=== PATIENT | female | born 1960 | race Caucasian/White ===

== ENCOUNTER 2024-04-04 16:30 | Emergency (ER) | payer OTHER, SELFPAY ==
[2024-04-04] VITALS (9 sets, daily range): BP systolic 95–118; BP diastolic 59–84; PULSE 86–119; RESP 13–100; TEMP 36.1–36.6; O2SAT 95–100; BMI 25.6
--- NOTE | 2024-04-04 16:53 | PD.EDRME ---
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 She reports with complaints of anorexia x 2 days Chief Complaint: Abdominal Pain Time Seen by Provider: 04/04/24 16:33 Vital signs: Vital Signs Temperature 97.5 F 04/04/24 16:42 Pulse Rate 115 H 04/04/24 16:42 Respiratory Rate 20 04/04/24 16:42 Blood Pressure 97/68 04/04/24 16:42 Pulse Oximetry (%) 97 04/04/24 16:42 Oxygen Delivery Method Room Air 04/04/24 16:42
[2024-04-04 17:14] LABS: Basophils % (Auto) 0 % (0-2.5); Eosinophils % (Auto) 0 % (0-10); Hematocrit 35.6 % (36.0-46.0); Immature Granulocytes % (Auto) 4 % (0-0); Immature Granulocytes Auto 0.56 Thou/mm3 (0.00-0.00); Lymphocytes # (Auto) 0.9 Thou/mm3 (1.0-4.8); Lymphocytes % (Auto) 7 % (10-50); Mean Corpuscular HGB Conc 33.7 g/dl (31.0-37.0); Mean Corpuscular Hemoglobin 27.7 pg (25.0-35.0); Mean Corpuscular Volume 82 fL (80-100); Monocytes # (Auto) 0.4 Thou/mm3 (0.0-0.8); Monocytes % (Auto) 3 % (0-12); Neutrophils # (Auto) 11.2 Thou/mm3 (1.8-7.7); Neutrophils % (Auto) 86 % (37-80); Nucleated Red Blood Cell % 0 /100 WBC (0); Platelet Count 359 Thou/mm3 (140-440); RDW Standard Deviation 42.7 fL (36.4-46.3); Red Blood Count 4.33 Miln/mm3 (4.00-5.20); White Blood Count 13.1 Thou/mm3 (3.6-11.0)
[2024-04-04 17:30] LABS: Alanine Aminotransferase 41 U/L (10-49); Albumin, Serum 4.7 gm/dL (3.4-4.8); Albumin/Globulin Ratio 1.4 (1.2-2.2); Alkaline Phosphatase 417 U/L (46-116); Anion Gap 15 (7-16); Aspartate Amino Transferase 18 U/L (0-34); BUN/Creatinine Ratio 19 Ratio (12-20); Bilirubin,Total 0.2 mg/dL (0.3-1.2); Blood Urea Nitrogen 30 mg/dL (9-23); Calcium 9.7 mg/dL (8.3-10.6); Calcium (Corrected) 9.7 mg/dL (8.5-10.1); Carbon Dioxide 15.1 mMol/L (20.0-31.0); Chloride 98 mMol/L (98-107); Creatinine (Component) 1.6 mg/dL (0.6-1.3); Estimated Creatinine Clearance 32.3 mL/min (>60); Globulin 3.3 gm/dL (2.3-3.5); Glucose 128 mg/dL (74-106); Osmolality,Calculated 265 (275-295); Potassium 3.6 mMol/L (3.4-5.1); Sodium 128 mMol/L (136-145); eGFR 36 See Note
--- NOTE | 2024-04-04 17:35 | PC.NURSE ---
PT CAME IN FOR WEAKNESS THAT STARTED 4 DAYS AGO GETTING WORSE LAST NIGHT. PT IS A/O AT THIS TIME. PT RECENTLY GOT DIACHARGED FROM [facility] S/P DEBULKING SURGERY. PT DOES HAVE MIDLINE ABD INCISION THAT IS WELL APPROXIMATED AND HEALING. CASIMIRO AT BEDSIDE.
--- NOTE | 2024-04-04 17:42 | XR_ITS ---
Examination: AP chest single view Technique one AP portable semiupright chest single view Exam date and time: April 04, 2024 at 1759 hrs. Indications: Sepsis today. Findings: Bilateral subsegmental atelectasis No lobar pneumonia Normal heart size Right Port-A-Cath tip SVC satisfactory position Impression: Bilateral subsegmental atelectasis No lobar pneumonia
--- NOTE | 2024-04-04 17:43 | EDNOTE_ITS ---
ED General RME/HPI General Chief complaint: Abdominal Pain Stated complaint: abdominal pain Time Seen by Provider: 04/04/24 16:33 Arrival date/time: 04/04/24 16:30 CC: A decreased appetite, and fluid intake HPI patient has a significant history of colon cancer with abdomen metastasis and was discharged from [facility] for right colon ectomy exploratory lap and was discharged 5 days ago. Patient states he was doing a OK , for the first 2 days at home and then to decreased p.o. intake. Patient has no specific pain. 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 She reports with complaints of anorexia x 2 days Related Data Previous Rx's ?Medication ?Instructions ?Recorded ascorbic acid (vitamin C) 250 mg 500 mg (2 x 250 mg) PO BID #60 tabs 09/23/22 tablet (Vitamin C) docusate sodium 100 mg capsule 100 mg PO BID #60 caps 09/23/22 hydrocodone 5 mg-acetaminophen 325 1 tab PO Q6HR PRN pain (scale 09/23/22 mg tablet score 7-10) #30 tabs zinc sulfate 50 mg zinc (220 mg) 220 mg (4.4 x 50 mg zinc (220 mg)) 09/23/22 capsule PO QDAY #30 caps Allergies Allergy/AdvReac Type Severity Reaction Status Date / Time No Known Allergies Allergy Verified 04/04/24 16:36 Review of Systems Review of Systems Narrative Review of Systems: GEN: No fever, no chills, no weight loss EYES: No discharge, no visual changes, no pain HEENT: No ear pain, no congestion, no sore throat PULM: No shortness of breath, no cough, no congestion CV: No chest pain, no dyspnea on exertion, no palpitations GI: No nausea, no vomiting, no diarrhea, no pain, no constipation : No frequency, no urgency, no dysuria MUSC/SKEL: No joint pain, no back pain SKIN: No rash PSYCH: No hallucinations, no depression HEME/LYMPH: No easy bleeding or bruising tendencies NEURO: No weakness, no headache Past Medical History Past Medical History NEUROLOGIC: Positive Neurological Disorders and Transient Ischemic Attacks (TIA); Negative Cerebrovascular Accident, Dementia, Alzheimer's Disease, Parkinson's Disease, Brain Tumor, Meningitis, Seizures, Epilepsy, Multiple Sclerosis, Cerebral Palsy, Amyotrophic Lateral Sclerosis (ALS/Carlota Gehrig's), Guillain-Burnside Syndrome, Spina Bifida, Paralysis, Peripheral Neuropathy, Park's Palsy, Subdural Hematoma, Migraine, Head Trauma or Traumatic Brain Injury CARDIAC: Negative Cardiac Disorders, Myocardial Infarction, Cardiac Arrhythmia, Atrial Fibrillation, Angina, Heart Murmur, Coronary Artery Disease, Atherosclerotic Heart Disease, Peripheral Vascular Disease, Hypercholesterolemia, Aneurysm, Congestive Heart Failure, Congenital Heart Disease, Valvular Heart Disease, Rheumatic Fever, Cardiomyopathy, Edema, Pericarditis, Cellulitis, Deep Vein Thrombosis, Hypertension, Hypotension or Varicose Veins RESPIRATORY: Negative Chronic Obstructive Pulmonary Disease (COPD), Asthma, Bronchitis, Emphysema, Pneumonia, Pulmonary Fibrosis, Cystic Fibrosis, Tuberculosis, Pulmonary Embolism, Pulmonary Edema or Sleep Apnea GASTROINTESTINAL: Positive Colorectal Cancer and Hemorrhoids (colonoscopy 07/26/2020); Negative Gastrointestinal Disorders, Hepatitis, Cirrhosis, Pancreatitis, Celiac Disease, Gall Bladder Disease, Gastrointestinal Bleed, Esophageal Varices, Coburn's Esophagus, Colitis, Ulcerative Colitis, Diverticulitis, Diverticulosis, Ulcer, Irritable Bowel, Crohn's Disease, Obstructive Bowel, Hiatal Hernia, Gastroesophageal Reflux Disease or Obesity GENITOURINARY: Negative Genitourinary Disorders, Renal Disease, Kidney Stones, Polycystic Kidney Disease, Neurogenic Bladder, Inguinal Hernia, Dialysis, Prostate Cancer or Benign Prostatic Hyperplasia REPRODUCTIVE: Positive Previous Pregnancies; Negative Breast Cancer, Endometriosis, Genital Herpes, Gonorrhea, Pelvic Inflammatory Disease, Syphilis, Testicular Cancer or Uterine Prolapse MUSCULOSKELETAL: Negative Musculoskeletal Disorders, Muscular Dystrophy, Myasthenia Gravis, Marfan's Syndrome, Bone Cancer, Arthritis, Rheumatoid Arthritis, Osteoporosis, Degenerative Disk Disease, Gout, Scoliosis, Carpal Tunnel Syndrome, Fibromyalgia, Fractures, Degenerative Joint Disease, Osteomyelitis or Poliovirus ENT: Negative Cataracts, Glaucoma, Blind, Retinal Detachment, Macular Degeneration, Ear Infection, Deafness, Head Trauma or Eye Prosthesis ENDOCRINE: Negative Endocrine Disorders, Diabetes Mellitus Type 1, Diabetes Mellitus Type 2, Hypoglycemia, Valparaiso's Syndrome, Newport's Disease, Hyperthyroidism, Hypothyroidism, Parathyroid Disease, Pituitary Disease, Systemic Lupus Erythematosus, Syndrome of Inappropriate Antidiuretic Hormone (SIADH), Adrenal Disease or Graves' Disease HEMATOLOGIC: Positive Blood Disorders and Anemia; Negative Leukemia, Hemophilia, Thalassemia, Sickle Cell Disease or Clotting Problems PSYCHO/SOCIAL: Negative Psychiatric Problems, Schizophrenia, Recreational Drug Use, Bipolar Disorder, Depression, Anxiety, Behavior Problems, Self-Mutilation, Attention Deficit Disorder, Attention Deficit Hyperactivity Disorder, Depression, Post Traumatic Stress Disorder or Eating Disorder OTHER HISTORY: Positive Hospitalization (TIA, surgery), Shingles, Chemotherapy (HIPEC DURING TRANSVERSE COLECTOMY 2023), Chicken Pox, Cancer and Colorectal Cancer; Negative Autoimmune Disease, Down Syndrome, Autism, Developmental Delay, Falls, Blood Transfusions, Blood Transfusion Reaction, Anesthesia Reactions, Organ Transplant, Radiation Therapy, Hyperbaric Therapy, MRSA, VRSA, Vancomycin- Resistant Enterococci, Human Immunodeficiency Virus (HIV), Measles, Mumps, Rubella (Georgian Measles), Pertussis, Clostridium Difficile, Breast Cancer, Cervical Cancer, Lung Cancer, Ovarian Cancer, Prostate Cancer or Testicular Cancer Family History FAMILY HISTORY: Positive Family Surgery; Negative Family Psychiatric Problems, Family Respiratory Disorders, Family Cardiac Disorders, Family Gastrointestinal Problems, Family Cancer or Family Anesthesia Reaction Surgical History SURGICAL: Positive Bowel Surgery (right colectomy 2020, TRANSVERSE COLOECTOMY 2023) and Hysterectomy; Negative Cardiac Surgery, Open Heart Surgery, Coronary Artery Bypass Graft, Valve Replacement, Vascular Surgery, Coronary Stent, Cardiac Catheterization, Pacemaker, Angiogram, Auto Implanted Cardiovert Defib, Carotid Endarterectomy, Endocrine Surgery, Thyroidectomy, Ear Surgery, Tympanostomy Tube, Eye Surgery, Nose Surgery, Oral Surgery, Tonsillectomy, Adenoidectomy, Cochlear Implant, Corneal Transplant, Throat Surgery, Abdominal Surgery, Tracheostomy, Gastric Bypass Surgery, Gastrostomy, Nephrectomy, Transurethral Resection, Joint Replacement, Amputation, Open Reduction Internal Fixation, Arthroscopy, Neurologic Surgery, Brain Shunt, Mastectomy, Lumpectomy, Tubal Ligation, Section or Organ Transplant OTHER SURGICAL HX: VENTRAL HERNIA REPAIR, RIGHT OOPHERECTOMY, ABD TUMOR DEBULKING Social History SMOKING STATUS: Never smoker SECOND HAND EXPOSURE: No SUBSTANCE USE: does not use ED Exam Narrative Physical exam: [General: Deconditioned, borderline emaciated appears not in any acute distress Head normocephalic HEENT: Within acceptable limits Neck is supple nontender Chest equal chest rise nontender to palpation Respiratory: Clear to auscultation no wheezes crackles or rubs CV: Rate rhythm is regular no murmurs rubs or clicks Abdomen is distended secondary to body habitus soft nontender Back: No CVA tenderness no spinous process tenderness from cervical spine thoracic and lumbar spine Skin: Intact no petechiae rash induration ulceration or crepitus. Vertical suture site of the abdomen is clean dry intact healing well no surrounding erythema or edema. The patient has minimal tenting in the dorsum of the hand. Extremities: Moving all extremity against resistance cap refill less than 2 seconds neurosensory intact Neuro: Awake alert oriented x3 Glascow coma 15 no focal deficits] Course Course Course Narrative: Patient's case including SBO discussed with Dr. Gordon the surgeon who states, if the SBO required surgery the patient needs to be transferred. If not the patient can stay here. Patient's case discussed with Dr. Pedraza, wants to look at the patient for final determination. Patient and patient's daughter explained of the situation. Patient's case discussed with Dr. Lauren Ann surgeon at [facility] for the patient who agrees to accept the patient for admission. Quality Measures VTE prophylaxis Orders Category Date Time Status Bedside COVID-19 Antigen Test NOW Care 04/05/24 00:12 Completed Video Arcade Manager STAT Care 04/04/24 17:41 Completed Continuous Pulse Oximetry STAT Care 04/04/24 17:41 Completed EKG (ED ONLY) *Do not use* NOW Care 04/04/24 16:51 Completed EKG (ED ONLY) *Do not use* NOW Care 04/04/24 17:41 Completed Zapien [Urinary Catheter] QS Care 04/04/24 23:48 Completed Insert IV NOW Care 04/04/24 17:41 Completed Insert NG / OG tube NOW Care 04/04/24 22:08 Completed NG / OG Tube to LIS NOW Care 04/04/24 20:17 Completed NPO STAT Care 04/04/24 17:41 Completed Strict Intake and Output Routine Care 04/04/24 17:41 Ordered Transfer to another facility [Transfer/Discharge] Stat Discharge 04/04/24 22:[address] abdomen pelvis wo con Stat Exams 04/04/24 19:18 Completed EKG (ED Only) Stat Exams 04/04/24 16:50 Ordered EKG (ED Only) Stat Exams 04/04/24 17:41 Stop Req XR chest 1V SEPSIS PROTOCOL Stat Exams 04/04/24 17:42 Completed XR chest 1V portable Stat Exams 04/04/24 22:15 Completed B-Type Natriuretic Peptide Stat Lab 04/04/24 17:07 Completed Blood Culture (Lab) Stat Lab 04/04/24 17:52 Received CBC Stat Lab 04/04/24 17:07 Completed CMP [Comprehensive Metabolic Panel] Stat Lab 04/04/24 17:07 Completed LDH (Lactate Dehydrogenase) Stat Lab 04/04/24 17:07 Completed Lactate (Lactic Acid) Stat Lab 04/04/24 17:52 Completed Lipase Stat Lab 04/04/24 17:07 Completed Mag [Magnesium] Stat Lab 04/04/24 17:07 Completed Partial Thromboplastin Time Stat Lab 04/04/24 17:07 Completed Phosphorous Stat Lab 04/04/24 17:07 Completed Procalcitonin Stat Lab 04/04/24 17:07 Completed Prothrombin Time with INR Stat Lab 04/04/24 17:07 Completed Troponin I Stat Lab 04/04/24 17:07 Completed UA, C/S IF [Urinalysis, C/S if Indicated] Stat Lab 04/04/24 23:54 Completed Urine Culture Stat Lab 04/04/24 23:54 Received LORazepam [Ativan Inj] Med 04/04/24 22:07 Discontinued 1 mg IVP X1 ONE Ondansetron Inj [Zofran Inj] Med 04/04/24 22:10 Discontinued 4 mg IV X1 ONE Ondansetron Inj [Zofran Inj] Med 04/04/24 23:54 Discontinued 4 mg IV X1 ONE Piper/Tazo Inj [Zosyn Inj] 3.375 gm Med 04/04/24 23:43 Discontinued Sodium Chloride 0.9% (P) [Ns 0.9% (P)] 50 ml IV X1 Sodium Chloride 0.9% 1000 ml [Ns] 1,000 ml Med 04/04/24 20:21 Discontinued IV 85 mls/hr Sodium Chloride 0.9% 1000 ml [Ns] 1,000 ml Med 04/04/24 18:03 Discontinued IV 999 mls/hr Oxygen Delivery NOW RT 04/04/24 17:41 Completed Vital Signs Vital signs: Vital Signs Temperature 97.5 F 04/04/24 16:42 Pulse Rate 115 H 04/04/24 16:42 Respiratory Rate 20 04/04/24 16:42 Blood Pressure 97/68 04/04/24 16:42 Pulse Oximetry (%) 97 04/04/24 16:42 Oxygen Delivery Method Room Air 04/04/24 16:42 [facility] Patient data External records reviewed:: [facility] previous records Clinical information provided by:: patient and family Social determinants that could affect healthcare access:: none Patient has the following chronic illnesses:: Colon cancer with recent colectomy, How is presenting disease/condition affected by chronic disease/condition?: u neffected by Evaluation data The following diagnostics were reviewed and interpreted by me:: lab results, radiology exam(s) and EKG tracing(s) Lab and/or radiology exams considered but not ordered:: CBC shows a mild leukocytosis, no anemia or thrombocytopenia CMP sodium 130, creatinine of 1.6 BUN of 30. No other significant electrolyte imbalances transaminitis or T. bili elevation. Alk phos of 450 Coags within acceptable limits CT of the abdomen shows SBO. Lipase within normal limits Interpretation Summary: SBO Medications Medications considered but not ordered:: None Medication administrations:: Medication Administration History Discontinued Medications Sodium Chloride (Ns) 1,000 mls @ 999 mls/hr IV .Q1H1M MOI Stop: 04/04/24 19:03 Last Infusion: 04/04/24 20:11 Dose: Infused Documented By: Admin: 04/04/24 18:05 Dose: 999 mls/hr Documented By: TARA Sodium Chloride (Ns) 1,000 mls @ 85 mls/hr IV .[id number] ONE Stop: 04/05/24 08:06 Last Admin: 04/04/24 21:20 Dose: 85 mls/hr Documented By: AYLIN Piperacillin Sod/Tazobactam (Sod 3.375 gm/ Sodium Chloride) 50 mls @ 100 mls/hr IV X1 ONE Stop: 04/05/24 00:12 Last Infusion: 04/05/24 00:30 Dose: Infused Documented By: Admin: 04/05/24 00:00 Dose: 100 mls/hr Documented By: AYLIN Lorazepam (Lorazepam 2 Mg/Ml Vial) 1 mg IVP X1 ONE Stop: 04/04/24 22:08 Last Admin: 04/04/24 22:17 Dose: 1 mg Documented By: AYLIN Ondansetron HCl (Ondansetron Inj 2 Mg/Ml Inj 2 Ml) 4 mg IV X1 ONE; Protocol Stop: 04/04/24 22:11 Last Admin: 04/04/24 22:15 Dose: 4 mg Documented By: AYLIN Ondansetron HCl (Ondansetron Inj 2 Mg/Ml Inj 2 Ml) 4 mg IV X1 ONE; Protocol Stop: 04/04/24 23:55 Last Admin: 04/05/24 00:05 Dose: 4 mg Documented By: AYLIN None Consultations Consultation(s) initiated? (list below): No Diagnosis Differential Diagnosis ED Complaint MDM: SBO ileus obstruction Most likely diagnosis given after review of the tests above:: SBO Admission Indicated Admission indicated?: indicated Explain why admission is indicated or not indicated:: Transfer to [place] Admission Request Was there a request for admission?: No Disposition Plan Disposition Plan: Transfer Medical Decision Making Differential Diagnosis Differential Diagnosis: SBO ileus obstruction Lab Data 04/04/24 17:07 04/04/24 17:07 Labs: Lab Results 04/04/24 04/04/24 04/04/24 Range/Units 17:07 17:52 23:54 WBC 13.1 H (3.6-11.0) Thou/mm3 RBC 4.33 (4.00-5.20) Miln/mm3 Hgb 12.0 (12.0-16.0) g/dL Hct 35.6 L (36.0-46.0) % MCV 82 (80-100) fL MCH 27.7 (25.0-35.0) pg MCHC 33.7 (31.0-37.0) g/dl RDW Std Deviation 42.7 (36.4-46.3) fL Plt Count 359 (140-440) Thou/mm3 Neut % (Auto) 86 H (37-80) % Lymph % (Auto) 7 L (10-50) % Wolfe % (Auto) 3 (0-12) % Eos % (Auto) 0 (0-10) % Baso % (Auto) 0 (0-2.5) % Neut # (Auto) 11.2 H (1.8-7.7) Thou/mm3 Lymph # (Auto) 0.9 L (1.0-4.8) Thou/mm3 Wolfe # (Auto) 0.4 (0.0-0.8) Thou/mm3 Eos # (Auto) 0.0 (0.0-0.5) Thou/mm3 Baso # (Auto) 0.0 (0.0-0.2) Thou/mm3 Immature Gran # (Auto) 0.56 H (0.00-0.00) Thou/mm3 Absolute Nucleated RBC 0.00 (0.00-0.00) Thou/mm3 Immature Gran % 4 H (0-0) % Nucleated RBC % 0 (0) /100 WBC PT 11.4 (9.0-12.2) Seconds INR 1.0 (0.9-1.3) APTT 24.5 (22.0-36.0) Seconds Sodium 128 L (136-145) mMol/L Potassium 3.6 (3.4-5.1) mMol/L Chloride 98 (98-107) mMol/L Carbon Dioxide 15.1 L (20.0-31.0) mMol/L Anion Gap 15 (7-16) BUN 30 H (9-23) mg/dL Creatinine 1.6 H (0.6-1.3) mg/dL Estim Creat Clear Calc 32.3 L (>60) mL/min eGFR 36 L (60 - ) See Note BUN/Creatinine Ratio 19 (12-20) Ratio Glucose 128 H (74-106) mg/dL Calculated Osmolality 265 L (275-295) Lactic Acid 1.5 (0.4-2.0) mMol/L Calcium 9.7 (8.3-10.6) mg/dL Corrected Calcium 9.7 (8.5-10.1) mg/dL Phosphorus 5.0 (2.4-5.1) mg/dL Magnesium 2.0 (1.6-2.6) mg/dL Total Bilirubin 0.2 L (0.3-1.2) mg/dL AST 18 (0-34) U/L ALT 41 (10-49) U/L Alkaline Phosphatase 417 H (46-116) U/L Lactate Dehydrogenase 198 (120-246) U/L Troponin I < 0.020 (0.0-0.045) ng/mL B-Natriuretic Peptide < 20 (0-100) pg/mL Total Protein 8.0 (5.7-8.2) gm/dL Albumin 4.7 (3.4-4.8) gm/dL Globulin 3.3 (2.3-3.5) gm/dL Albumin/Globulin Ratio 1.4 (1.2-2.2) Lipase 44 (12-53) U/L Procalcitonin 0.55 H (0.0-0.49) ng/ml Ur Collection Type Clean Catch Urine Color Lt-Yellow (Lt Yel-Yel) Urine Clarity Clear (Clear/Hazy) Urine pH 6.0 (5.0-7.0) Ur Specific Sebastian 1.010 (1.001-1.035) Urine Protein 1+ A (Neg - Trace) Urine Glucose (UA) Negative (Negative) Urine Ketones Trace (Negative) Urine Blood Negative (Negative) Urine Nitrite Negative (Negative) Urine Bilirubin Negative (Negative) Urine Urobilinogen (Auto) Negative (0.0-1.0) mg/dL Ur Leukocyte Esterase Negative (Negative) Urine RBC 1 (0-3) /hpf Urine WBC 1 (0-5) /hpf Ur Squamous Epith Cells < 1 (0-5) /hpf Urine Bacteria None (None) Hyaline Casts < 1 (0-1) /hpf Ur Culture Indicated? Not Indicated Discharge Plan Plan Patient Disposition: [facility] Facility Pt Being Transferred to: [place] Service Needed for Transfer: General Surgery Patient condition on transfer: Stable Prescriptions/Referrals Prescriptions/Med Rec: No Action ascorbic acid (vitamin C) [Vitamin C] 250 mg Tablet 500 mg PO BID Qty: 60 0RF docusate sodium 100 mg Capsule 100 mg PO BID Qty: 60 0RF hydrocodone-acetaminophen 5-325 mg Tablet 1 tab PO Q6HR MDD 4 PRN (Reason: pain (scale score 7-10)) Qty: 30 0RF zinc sulfate 50 mg zinc (220 mg) Capsule 220 mg PO QDAY Qty: 30 0RF Referrals: Osmany (PCP),MD Steven [Primary Care Provider] - In 1 week Problem List Clinical Impression: SBO (small bowel obstruction) Patient/Caregiver Discharge Instructions Education Materials: Small Bowel Obstruction Print Language: South Korean Stand Alone Forms: Janette Award Info., Patient Portal Info Letter PA/CLOTH NAPPING SUPERVISOR Supervising Physician PA/CLOTH NAPPING SUPERVISOR Supervising Physician: Pascual Aguilar ENP
[2024-04-04] MEDS: SODIUM CHLORIDE 0.9% 1000 ML 1,000 ML 999 ML IV (18:05)
[2024-04-04 18:06] LABS: Lactate (Lactic Acid) 1.5 mMol/L (0.4-2.0)
[2024-04-04 18:14] LABS: Partial Thromboplastin Time 24.5 Seconds (22.0-36.0); Prothrombin Time 11.4 Seconds (9.0-12.2)
[2024-04-04 18:19] LABS: LDH (Lactate Dehydrogenase) 198 U/L (120-246); Lipase 44 U/L (12-53); Procalcitonin 0.55 ng/ml (0.0-0.49); Troponin I < 0.020 ng/mL (0.0-0.045)
[2024-04-04 18:22] LABS: B-Type Natriuretic Peptide < 20 pg/mL (0-100)
--- NOTE | 2024-04-04 19:18 | XR_ITS ---
Examination: CT abdomen and pelvis without contrast. Coronal 3-D reconstructions. Sagittal 2-D reconstructions. Date and time of exam:April 04, 2024 1932 hrs. Indications: Status post colectomy 4 weeks ago, diagnosis malignant neoplasm colon 4 years ago, abdominal pain CTDI: vol (mGy): 7.63 DLP: (mGycm): 393 Technique: Axial images of the abdomen have been obtained, 3 mm slice thickness Intravenous contrast material has not been administered. Low dose protocols were performed. One or more of the following dose reduction techniques were used; automated exposure control, adjustment of the mA and/or KV according to patient size, use of iterative reconstruction technique. Findings: Atelectasis versus pneumonia at the lung bases No focal liver lesions Gallbladder wall appears thickened Spleen is not enlarged No pancreatic or adrenal mass No hydronephrosis Multiple fluid distended small bowel loops No free air Moderate stool in the rectosigmoid Air in the urinary bladder, clinical correlation advised No pelvic mass Impression: Small bowel obstruction pattern, consider Gastrografin small bowel series follow-up
--- NOTE | 2024-04-04 20:54 | PC.NURSE ---
HOLLI CONTACTED AND SPOKE WITH JM IN THE TRANSFER CENTER FOR POSSIBLE TRANSFER. DR ANNA ALFONSO IS THE PATIENTS SURGEON, DONE AT [facility]
[2024-04-04] MEDS: SODIUM CHLORIDE 0.9% 1000 ML 1,000 ML 85 ML IV (21:20)
[2024-04-04] MEDS: ONDANSETRON INJ 2 MG/ML INJ 2 ML 4 MG IV (22:15)
--- NOTE | 2024-04-04 22:15 | XR_ITS ---
Examination: AP chest single view Technique one AP portable upright chest single view Exam date and time: March 2024 1021 hrs. Comparison November 03, 2020 Indications: Status post orogastric tube placement Findings: Orogastric tube in the stomach satisfactory position Subsegmental atelectasis left base Normal heart size Right internal jugular Port-A-Cath tip satisfactory position Impression: Orogastric tube satisfactory position
[2024-04-04] MEDS: LORazepam 2 MG/ML VIAL 1 MG IVP (22:17)
--- NOTE | 2024-04-04 22:33 | PD.EDADDENDU ---
Emergency Room Addendum <Sangita Mccarthy - Last Filed: 04/04/24 23:45> Addendum Narrative: 2233: Care assumed from Pascual Aguilar NP. Past medical, surgical, social and family history reviewed. Vitals and home medications reviewed. Results and treatment plan discussed. I will assume the care of the patient at this time and will follow the patient, pending bed availability at [place]. Please refer to the emergency department record for history and examination from initial visit. OBSERVATION NOTE: The patient was placed in ED observation care at 04/04/24 at 2233 hours. The patient was placed in ED observation care because of pending bed availability at [place]. The patients past medical history, social history, and family history were reviewed. The plan of care will include serial examinations. 2337: Bed is available, patient is stable to be transferred to [place]. <Minda Cunha MD - Last Filed: 04/04/24 23:45> Addendum Narrative: 2233: Care assumed from Pascual Aguilar NP. Past medical, surgical, social and family history reviewed. Vitals and home medications reviewed. Results and treatment plan discussed. I will assume the care of the patient at this time and will follow the patient, pending bed availability at [place]. Please refer to the emergency department record for history and examination from initial visit. Patient is tolerating NG tube at this time. Review of the labs show that her procalcitonin is slightly elevated at 0.55 and a white count is 13. Zosyn is ordered x1. OBSERVATION NOTE: The patient was placed in ED observation care at 04/04/24 at 2233 hours. The patient was placed in ED observation care because of pending bed availability at [place]. The patients past medical history, social history, and family history were reviewed. The plan of care will include serial examinations. 2337: Bed is available, patient is stable to be transferred to [place].
--- NOTE | 2024-04-04 23:40 | PC.NURSE ---
PT ACCEPTED [facility] [address], DR ANNA ALFONSO ROOM [id number]
[2024-04-04 23:58] LABS: Collection Type, Urine Clean Catch
[2024-04-05] MEDS: PIPER/TAZO INJ 3.375 GM in SODIUM CHLORIDE 0.9% (P) 50 ML IV
[2024-04-05] MEDS: ONDANSETRON INJ 2 MG/ML INJ 2 ML 4 MG IV (00:05)
[2024-04-05 00:08] VITALS: BP 113/70; PULSE 106; RESP 18; TEMP 36.5; O2SAT 99
[2024-04-05 00:27] LABS: Bilirubin,Urine Negative (Negative); Blood,Urine Negative (Negative); Clarity,Urine Clear (Clear/Hazy); Color,Urine Lt-Yellow (Lt Yel-Yel); Culture Indicated,Urine Not Indicated; Glucose, Urine Negative (Negative); Hyaline Casts,Urine < 1 /hpf (0-1); Ketones,Urine Trace (Negative); Leukocyte Esterase,Urine Negative (Negative); Nitrite,Urine Negative (Negative); Protein,Urine 1+ (Neg - Trace); RBC,Urine 1 /hpf (0-3); Squamous Epithelial Cell,Urine < 1 /hpf (0-5); Urobilinogen,Urine Negative mg/dL (0.0-1.0); WBC,Urine 1 /hpf (0-5)
[2024-04-05 01:33] VITALS: BP 110/65; PULSE 107; RESP 19; TEMP 36.5; O2SAT 96
--- NOTE | 2024-04-05 02:17 | PC.NURSE ---
Report given to Jacob at [facility]
== END 2024-04-05 02:12 | disposition short-term general hospital (02) ==
PROVIDERS: Physician Assistant; Registered Nurse General Practice; Emergency Provider Emergency Medicine; PCP Family Medicine
DX: K56.609 Unspecified intestinal obstruction, unspecified as to partial versus complete obstruction (principal); R00.0 Tachycardia, unspecified; Z75.1 Person awaiting admission to adequate facility elsewhere
CPT/HCPCS: 51701; 36415; 71045; 74176; 80053; 81001; 83605; 83615; 83690; 83735; 83880; 84100; 84145; 84484; 85025; 85610; 85730; 87040; 87077; 87086; 87186; 87811; 93005; 96361; 96365; 96375; 99285; J2060; J2405; J2543; J7030; J7050

== ENCOUNTER → 2024-05-19 | Outpatient (CLI) | payer OTHER, SELFPAY ==
[2024-05-19 14:06] LABS: Basophils % (Auto) 0 % (0-2.5); Eosinophils % (Auto) 0 % (0-10); Immature Granulocytes % (Auto) 1 % (0-0); Immature Granulocytes Auto 0.08 Thou/mm3 (0.00-0.00); Lymphocytes # (Auto) 1.9 Thou/mm3 (1.0-4.8); Lymphocytes % (Auto) 30 % (10-50); Mean Corpuscular HGB Conc 32.9 g/dl (31.0-37.0); Mean Corpuscular Hemoglobin 26.6 pg (25.0-35.0); Mean Corpuscular Volume 81 fL (80-100); Monocytes # (Auto) 0.3 Thou/mm3 (0.0-0.8); Monocytes % (Auto) 5 % (0-12); Neutrophils % (Auto) 63 % (37-80); Nucleated Red Blood Cell % 0 /100 WBC (0); Platelet Count 371 Thou/mm3 (140-440); RDW Standard Deviation 46.7 fL (36.4-46.3); Red Blood Count 2.97 Miln/mm3 (4.00-5.20); White Blood Count 6.3 Thou/mm3 (3.6-11.0)
[2024-05-19 14:10] LABS: Alanine Aminotransferase 31 U/L (10-49); Albumin/Globulin Ratio 1.4 (1.2-2.2); Alkaline Phosphatase 141 U/L (46-116); Anion Gap 12 (7-16); Aspartate Amino Transferase 22 U/L (0-34); BUN/Creatinine Ratio 19 Ratio (12-20); Bilirubin,Total 0.3 mg/dL (0.3-1.2); Blood Urea Nitrogen 17 mg/dL (9-23); Carbon Dioxide 19.8 mMol/L (20.0-31.0); Chloride 104 mMol/L (98-107); Creatinine (Component) 0.9 mg/dL (0.6-1.3); Globulin 2.9 gm/dL (2.3-3.5); Glucose 110 mg/dL (74-106); Osmolality,Calculated 274 (275-295); Potassium 3.2 mMol/L (3.4-5.1); Sodium 136 mMol/L (136-145); Total Protein 6.9 gm/dL (5.7-8.2); eGFR > 60 See Note
[2024-05-19 14:42] LABS: Carcinoembryonic Antigen 8.9 ng/mL (0.0-5.0)
[2024-05-19 15:02] LABS: Hemoglobin 7.9 g/dL (12.0-16.0)
== END | disposition home or self-care (01) ==
PROVIDERS: PCP Family Medicine; Referring Provider Internal Medicine Hematology; Visit Provider Internal Medicine Hematology
DX: C18.0 Malignant neoplasm of cecum (principal)
CPT/HCPCS: 36415; 80053; 82378; 85025

== ENCOUNTER → 2024-06-01 | Outpatient (CLI) | payer OTHER, SELFPAY ==
[2024-06-01 15:50] LABS: Ferritin 689 ng/mL (7.3-270.7); Total Iron Binding Capacity 242 mcg/dL (250-425)
[2024-06-01 16:00] LABS: Iron 27 mcg/dL (50-170); Percent Iron Saturation 11 % (20-55); Unsaturated Iron Binding 215 (225-295)
== END | disposition home or self-care (01) ==
PROVIDERS: PCP Family Medicine; Referring Provider Nurse Practitioner; Visit Provider Nurse Practitioner
DX: C18.0 Malignant neoplasm of cecum (principal)
CPT/HCPCS: 36415; 82728; 83540; 83550

== ENCOUNTER → 2024-06-22 | Outpatient (CLI) | payer OTHER, SELFPAY ==
[2024-06-22 13:43] LABS: Basophils % (Auto) 0 % (0-2.5); Eosinophils # (Auto) 0.1 Thou/mm3 (0.0-0.5); Eosinophils % (Auto) 2 % (0-10); Hematocrit 30.8 % (36.0-46.0); Hemoglobin 9.6 g/dL (12.0-16.0); Immature Granulocytes % (Auto) 1 % (0-0); Immature Granulocytes Auto 0.04 Thou/mm3 (0.00-0.00); Lymphocytes % (Auto) 25 % (10-50); Mean Corpuscular HGB Conc 31.2 g/dl (31.0-37.0); Mean Corpuscular Hemoglobin 25.5 pg (25.0-35.0); Mean Corpuscular Volume 82 fL (80-100); Monocytes # (Auto) 0.4 Thou/mm3 (0.0-0.8); Monocytes % (Auto) 5 % (0-12); Neutrophils # (Auto) 5.4 Thou/mm3 (1.8-7.7); Neutrophils % (Auto) 69 % (37-80); Nucleated Red Blood Cell % 0 /100 WBC (0); Platelet Count 339 Thou/mm3 (140-440); RDW Standard Deviation 50.9 fL (36.4-46.3); Red Blood Count 3.76 Miln/mm3 (4.00-5.20); White Blood Count 7.9 Thou/mm3 (3.6-11.0)
[2024-06-22 14:27] LABS: Iron 31 mcg/dL (50-170)
== END | disposition home or self-care (01) ==
LOC: SLAB 11:13
PROVIDERS: PCP Family Medicine
DX: D50.9 Iron deficiency anemia, unspecified (principal); C18.9 Malignant neoplasm of colon, unspecified
CPT/HCPCS: 36415; 83540; 85025

== ENCOUNTER → 2024-07-05 | Outpatient (CLI) | payer OTHER, SELFPAY ==
[2024-07-05 11:23] LABS: Misc Send Out* See Sep Rpt
[2024-07-05 11:41] LABS: Basophils % (Auto) 0 % (0-2.5); Eosinophils # (Auto) 0.1 Thou/mm3 (0.0-0.5); Eosinophils % (Auto) 1 % (0-10); Hematocrit 30.8 % (36.0-46.0); Hemoglobin 9.5 g/dL (12.0-16.0); Immature Granulocytes % (Auto) 1 % (0-0); Immature Granulocytes Auto 0.04 Thou/mm3 (0.00-0.00); Lymphocytes # (Auto) 2.2 Thou/mm3 (1.0-4.8); Lymphocytes % (Auto) 27 % (10-50); Mean Corpuscular HGB Conc 30.8 g/dl (31.0-37.0); Mean Corpuscular Hemoglobin 25.6 pg (25.0-35.0); Mean Corpuscular Volume 83 fL (80-100); Monocytes # (Auto) 0.4 Thou/mm3 (0.0-0.8); Monocytes % (Auto) 5 % (0-12); Neutrophils # (Auto) 5.3 Thou/mm3 (1.8-7.7); Neutrophils % (Auto) 66 % (37-80); Nucleated Red Blood Cell % 0 /100 WBC (0); Platelet Count 343 Thou/mm3 (140-440); RDW Standard Deviation 54.5 fL (36.4-46.3); Red Blood Count 3.71 Miln/mm3 (4.00-5.20)
[2024-07-05 11:45] LABS: Alanine Aminotransferase 11 U/L (10-49); Albumin, Serum 4.3 gm/dL (3.4-4.8); Albumin/Globulin Ratio 1.4 (1.2-2.2); Alkaline Phosphatase 100 U/L (46-116); Anion Gap 12 (7-16); Aspartate Amino Transferase 12 U/L (0-34); BUN/Creatinine Ratio 17 Ratio (12-20); Bilirubin,Total 0.3 mg/dL (0.3-1.2); Blood Urea Nitrogen 20 mg/dL (9-23); Calcium 9.5 mg/dL (8.3-10.6); Calcium (Corrected) 9.5 mg/dL (8.5-10.1); Carbon Dioxide 19.9 mMol/L (20.0-31.0); Chloride 107 mMol/L (98-107); Creatinine (Component) 1.2 mg/dL (0.6-1.3); Globulin 3.1 gm/dL (2.3-3.5); Glucose 115 mg/dL (74-106); Osmolality,Calculated 281 (275-295); Potassium 3.6 mMol/L (3.4-5.1); Sodium 139 mMol/L (136-145); Total Protein 7.4 gm/dL (5.7-8.2); eGFR 51 See Note
[2024-07-05 12:08] LABS: Ferritin 721 ng/mL (7.3-270.7); Iron 33 mcg/dL (50-170)
== END | disposition home or self-care (01) ==
PROVIDERS: PCP Family Medicine; Referring Provider Nurse Practitioner Family; Visit Provider Nurse Practitioner Family
DX: D50.9 Iron deficiency anemia, unspecified (principal); C18.9 Malignant neoplasm of colon, unspecified; R10.84 Generalized abdominal pain
CPT/HCPCS: 36415; 80053; 81001; 82728; 83540; 84466; 85025

== ENCOUNTER → 2024-07-06 | Outpatient (CLI) | payer OTHER, SELFPAY ==
[2024-07-06 10:20] LABS: Collection Type, Urine Clean Catch
[2024-07-06 11:05] LABS: Bacteria,Urine 1+; Bilirubin,Urine Negative (Negative); Blood,Urine Negative (Negative); Clarity,Urine Clear (Clear/Hazy); Color,Urine Lt-Yellow (Lt Yel-Yel); Glucose, Urine Negative (Negative); Ketones,Urine Negative (Negative); Leukocyte Esterase,Urine Negative (Negative); Nitrite,Urine Negative (Negative); Protein,Urine 1+ (Neg - Trace); RBC,Urine 2 /hpf (0-3); Specific Gravity,Urine 1.015 (1.001-1.035); Squamous Epithelial Cell,Urine 8 /hpf (0-5); Urobilinogen,Urine Negative mg/dL (0.0-1.0); WBC,Urine 2 /hpf (0-5)
[2024-07-06 11:10] LABS: Culture Indicated,Urine Yes
== END | disposition home or self-care (01) ==
DX: C18.9 Malignant neoplasm of colon, unspecified (principal); D50.9 Iron deficiency anemia, unspecified; R10.84 Generalized abdominal pain
CPT/HCPCS: 81001; 87086

== ENCOUNTER → 2024-08-10 | Outpatient (CLI) | payer OTHER, SELFPAY ==
[2024-08-10 13:37] LABS: Basophils % (Auto) 0 % (0-2.5); Eosinophils # (Auto) 0.1 Thou/mm3 (0.0-0.5); Eosinophils % (Auto) 1 % (0-10); Hematocrit 28.3 % (36.0-46.0); Hemoglobin 9.2 g/dL (12.0-16.0); Immature Granulocytes % (Auto) 0 % (0-0); Immature Granulocytes Auto 0.02 Thou/mm3 (0.00-0.00); Lymphocytes # (Auto) 1.8 Thou/mm3 (1.0-4.8); Lymphocytes % (Auto) 30 % (10-50); Mean Corpuscular HGB Conc 32.5 g/dl (31.0-37.0); Mean Corpuscular Hemoglobin 27.4 pg (25.0-35.0); Mean Corpuscular Volume 84 fL (80-100); Monocytes # (Auto) 0.3 Thou/mm3 (0.0-0.8); Monocytes % (Auto) 6 % (0-12); Neutrophils # (Auto) 3.8 Thou/mm3 (1.8-7.7); Neutrophils % (Auto) 63 % (37-80); Nucleated Red Blood Cell % 0 /100 WBC (0); Platelet Count 278 Thou/mm3 (140-440); RDW Standard Deviation 54.1 fL (36.4-46.3); Red Blood Count 3.36 Miln/mm3 (4.00-5.20); White Blood Count 6.1 Thou/mm3 (3.6-11.0)
[2024-08-10 13:54] LABS: Alanine Aminotransferase 11 U/L (10-49); Albumin, Serum 4.1 gm/dL (3.4-4.8); Albumin/Globulin Ratio 1.4 (1.2-2.2); Alkaline Phosphatase 84 U/L (46-116); Anion Gap 11 (7-16); Aspartate Amino Transferase 13 U/L (0-34); BUN/Creatinine Ratio 20 Ratio (12-20); Bilirubin,Total 0.2 mg/dL (0.3-1.2); Blood Urea Nitrogen 28 mg/dL (9-23); Calcium 9.1 mg/dL (8.3-10.6); Calcium (Corrected) 9.1 mg/dL (8.5-10.1); Carbon Dioxide 20.5 mMol/L (20.0-31.0); Chloride 109 mMol/L (98-107); Creatinine (Component) 1.4 mg/dL (0.6-1.3); Globulin 2.9 gm/dL (2.3-3.5); Glucose 96 mg/dL (74-106); Osmolality,Calculated 284 (275-295); Potassium 4.1 mMol/L (3.4-5.1); Sodium 140 mMol/L (136-145); eGFR 43 See Note
[2024-08-10 13:59] LABS: Carcinoembryonic Antigen 6.8 ng/mL (0.0-5.0); Ferritin 801 ng/mL (7.3-270.7); Iron 43 mcg/dL (50-170); Percent Iron Saturation 16 % (20-55); Total Iron Binding Capacity 256 mcg/dL (250-425); Unsaturated Iron Binding 213 (225-295)
== END | disposition home or self-care (01) ==
LOC: SLAB 07:01
PROVIDERS: PCP Family Medicine; Referring Provider Internal Medicine Hematology & Oncology; Visit Provider Internal Medicine Hematology & Oncology
DX: C18.0 Malignant neoplasm of cecum (principal)
CPT/HCPCS: 36415; 80053; 82378; 82728; 83540; 83550; 85025

== ENCOUNTER → 2024-10-26 | Outpatient (CLI) | payer OTHER, SELFPAY ==
[2024-10-26 08:19] LABS: Basophils # (Auto) 0.0 Thou/mm3 (0.0-0.2); Basophils % (Auto) 0 % (0-2.5); Eosinophils # (Auto) 0.0 Thou/mm3 (0.0-0.5); Eosinophils % (Auto) 1 % (0-10); Hematocrit 31.7 % (36.0-46.0); Hemoglobin 10.2 g/dL (12.0-16.0); Immature Granulocytes Auto 0.01 Thou/mm3 (0.00-0.00); Lymphocytes # (Auto) 1.3 Thou/mm3 (1.0-4.8); Lymphocytes % (Auto) 25 % (10-50); Mean Corpuscular HGB Conc 32.2 g/dl (31.0-37.0); Mean Corpuscular Hemoglobin 28.4 pg (25.0-35.0); Mean Corpuscular Volume 88 fL (80-100); Monocytes # (Auto) 0.3 Thou/mm3 (0.0-0.8); Monocytes % (Auto) 5 % (0-12); Neutrophils # (Auto) 3.7 Thou/mm3 (1.8-7.7); Neutrophils % (Auto) 69 % (37-80); Nucleated Red Blood Cell # 0.00 Thou/mm3 (0.00-0.00); Nucleated Red Blood Cell % 0 /100 WBC (0); Platelet Count 225 Thou/mm3 (140-440); RDW Standard Deviation 46.1 fL (36.4-46.3); Red Blood Count 3.59 Miln/mm3 (4.00-5.20); White Blood Count 5.3 Thou/mm3 (3.6-11.0)
[2024-10-26 08:38] LABS: Alanine Aminotransferase 11 U/L (10-49); Albumin, Serum 4.2 gm/dL (3.4-4.8); Albumin/Globulin Ratio 1.6 (1.2-2.2); Alkaline Phosphatase 74 U/L (46-116); Anion Gap 8 (7-16); Aspartate Amino Transferase 14 U/L (0-34); BUN/Creatinine Ratio 18 Ratio (12-20); Bilirubin,Total 0.4 mg/dL (0.3-1.2); Blood Urea Nitrogen 24 mg/dL (9-23); Calcium 9.5 mg/dL (8.3-10.6); Calcium (Corrected) 9.5 mg/dL (8.5-10.1); Carbon Dioxide 24.1 mMol/L (20.0-31.0); Chloride 111 mMol/L (98-107); Creatinine (Component) 1.3 mg/dL (0.6-1.3); Globulin 2.6 gm/dL (2.3-3.5); Glucose 95 mg/dL (74-106); Osmolality,Calculated 288 (275-295); Potassium 4.4 mMol/L (3.4-5.1); Sodium 143 mMol/L (136-145); Total Protein 6.8 gm/dL (5.7-8.2); eGFR 46 See Note
[2024-10-26 08:40] LABS: Carcinoembryonic Antigen 9.1 ng/mL (0.0-5.0); Vitamin D 25 Hydroxy Total 45.9 ng/mL (7.3-40.2)
== END | disposition home or self-care (01) ==
PROVIDERS: PCP Internal Medicine Hematology & Oncology; Referring Provider Nurse Practitioner Family; Visit Provider Nurse Practitioner Family
DX: C18.9 Malignant neoplasm of colon, unspecified (principal); C78.6 Secondary malignant neoplasm of retroperitoneum and peritoneum; D50.9 Iron deficiency anemia, unspecified; C18.0 Malignant neoplasm of cecum
CPT/HCPCS: 36415; 80053; 82306; 82378; 85025

== ENCOUNTER 2025-02-28 01:10 | Inpatient (IN) | payer OTHER, SELFPAY ==
[2025-02-28] VITALS (7 sets, daily range): BP systolic 97–132; BP diastolic 64–80; PULSE 68–90; RESP 16–20; TEMP 36.3–36.8; O2SAT 90–99; BMI 22.6
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
--- NOTE | 2025-02-28 01:28 | XR_ITS ---
Examination: CT chest with intravenous contrast CT abdomen with intravenous contrast CT pelvis with intravenous contrast 2-D coronal and sagittal reconstructions Time of exam: February 28, 2025, 0310 hours INDICATIONS: Onset chest and abdominal pain today CTDI: vol (mGy) : 14.1 DLP: (mGycm): 664 Technique: Multiple axial images of the chest, abdomen and pelvis with intravenous contrast, 3.0 mm slice thickness. Images obtained post intravenous injection Isovue 370 60 cc. 2-D sagittal and coronal reconstructions. Low dose protocols were performed. One or more of the following dose reduction techniques were used; automated exposure control, adjustment of the mA and/or KV according to patient size, use of iterative reconstruction technique. Findings: No thoracic aortic aneurysm dilatation or dissection No pulmonary artery emboli on this 9 CTA study No paratracheal tracheobronchial or bronchopulmonary adenopathy. No pneumonia or pulmonary edema, no pneumothorax No visualized liver or splenic lesion No gallstones No pancreatic mass Mild nodular thickening left adrenal gland No hydronephrosis Fluid distended colon Multiple fluid distended small bowel loops No pericecal inflammatory change No diverticulitis Contracted urinary bladder Calcification abdominal aorta Degenerative change lumbar spine IMPRESSION: No mediastinal lymphadenopathy No pneumonia or pulmonary edema or pleural disease Fluid distended small bowel loops, differential would include ileus, small bowel obstruction, clinical correlation advised and follow-up recommended
--- NOTE | 2025-02-28 01:28 | XR_ITS ---
Examination: Abdomen sonogram, Limited Date and time of exam: February 28, 2025, 0231 hours INDICATIONS: Onset abdominal pain today, diagnosis malignant neoplasm: Technique: Real-time magana scale transabdominal sonographic images of the upper abdomen obtained. Findings: Normal gallbladder. Normal common bile duct 0.4 cm Pancreatic head 2.2 cm Liver 13.1 cm fatty infiltration Normal hepatopetal portal venous flow Patent IVC IMPRESSION: Normal gallbladder Normal common bile duct
[2025-02-28] MEDS: HYDROmorphone INJ 2 MG/ML VIAL 1 MG IVP (02:01)
[2025-02-28 02:02] LABS: Basophils # (Auto) 0.0 Thou/mm3 (0.0-0.2); Basophils % (Auto) 0 % (0-2.5); Eosinophils # (Auto) 0.0 Thou/mm3 (0.0-0.5); Eosinophils % (Auto) 0 % (0-10); Hematocrit 34.0 % (36.0-46.0); Hemoglobin 11.2 g/dL (12.0-16.0); Immature Granulocytes Auto 0.01 Thou/mm3 (0.00-0.00); Lactate (Lactic Acid) 3.1 mMol/L (0.4-2.0); Lymphocytes # (Auto) 1.3 Thou/mm3 (1.0-4.8); Lymphocytes % (Auto) 16 % (10-50); Mean Corpuscular HGB Conc 32.9 g/dl (31.0-37.0); Mean Corpuscular Hemoglobin 28.7 pg (25.0-35.0); Mean Corpuscular Volume 87 fL (80-100); Monocytes # (Auto) 0.3 Thou/mm3 (0.0-0.8); Monocytes % (Auto) 4 % (0-12); Neutrophils # (Auto) 6.2 Thou/mm3 (1.8-7.7); Neutrophils % (Auto) 79 % (37-80); Nucleated Red Blood Cell # 0.00 Thou/mm3 (0.00-0.00); Nucleated Red Blood Cell % 0 /100 WBC (0); Platelet Count 225 Thou/mm3 (140-440); RDW Standard Deviation 46.4 fL (36.4-46.3); Red Blood Count 3.90 Miln/mm3 (4.00-5.20); White Blood Count 7.9 Thou/mm3 (3.6-11.0)
[2025-02-28] MEDS: ONDANSETRON INJ 2 MG/ML INJ 2 ML 4 MG IVP (02:02)
[2025-02-28] MEDS: KETOROLAC INJ 30 MG/ML VIAL 15 MG IVP (02:02)
[2025-02-28 02:03] LABS: Base Excess, Venous -2 (-3-3); O2 Saturation, Venous 86 % (96-97); PCO2, Venous 30 mmHg (36-56); PO2, Venous 54 mmHg (15-58); pH, Venous 7.46 (7.33-7.66)
[2025-02-28] MEDS: SODIUM CHLORIDE 0.9% 1000 ML 1,000 ML 999 ML IV (02:04)
[2025-02-28 02:08] LABS: Beta Hydroxybutyrate 0.1 mmol/L (<0.6)
[2025-02-28 02:15] LABS: Sed Rate (ESR) 73 mm/hr (0-30)
[2025-02-28 02:34] LABS: B-Type Natriuretic Peptide < 20 pg/mL (0-100)
[2025-02-28 02:37] LABS: Alanine Aminotransferase 20 U/L (10-49); Albumin, Serum 4.9 gm/dL (3.4-4.8); Albumin/Globulin Ratio 1.9 (1.2-2.2); Alkaline Phosphatase 98 U/L (46-116); Amylase 84 U/L (30-118); Anion Gap 13 (7-16); Aspartate Amino Transferase 19 U/L (0-34); BUN/Creatinine Ratio 17 Ratio (12-20); Bilirubin,Direct 0.1 mg/dL (0.0-0.3); Bilirubin,Total 0.4 mg/dL (0.3-1.2); Blood Urea Nitrogen 24 mg/dL (9-23); C-Reactive Protein 7.9 mg/dL (0.0-0.9); Calcium 10.3 mg/dL (8.3-10.6); Calcium (Corrected) 10.3 mg/dL (8.5-10.1); Carbon Dioxide 21.7 mMol/L (20.0-31.0); Chloride 108 mMol/L (98-107); Creatinine (Component) 1.4 mg/dL (0.6-1.3); Globulin 2.6 gm/dL (2.3-3.5); Glucose 124 mg/dL (74-106); Lipase 29 U/L (12-53); Magnesium 1.8 mg/dL (1.6-2.6); Osmolality,Calculated 289 (275-295); Potassium 3.8 mMol/L (3.4-5.1); Procalcitonin 0.10 ng/ml (0.0-0.49); Sodium 143 mMol/L (136-145); Thyroid Stimulating Hormone 9.51 uIU/mL (0.55-4.78); Total Protein 7.5 gm/dL (5.7-8.2); Troponin I < 0.002 ng/mL (0.0-0.045); eGFR 43 See Note
[2025-02-28 02:44] LABS: Collection Type, Urine Clean Catch
[2025-02-28 02:53] LABS: Bilirubin,Urine Negative (Negative); Blood,Urine Trace (Negative); Clarity,Urine Clear (Clear/Hazy); Color,Urine Colorless (Lt Yel-Yel); Culture Indicated,Urine Not Indicated; Glucose, Urine Negative (Negative); Ketones,Urine Negative (Negative); Leukocyte Esterase,Urine Negative (Negative); Nitrite,Urine Negative (Negative); PH,Urine 6.0 (5.0-7.0); Protein,Urine 1+ (Neg - Trace); RBC,Urine 1 /hpf (0-3); Specific Gravity,Urine 1.014 (1.001-1.035); Squamous Epithelial Cell,Urine 1 /hpf (0-5); Urobilinogen,Urine Negative mg/dL (0.0-1.0); WBC,Urine 1 /hpf (0-5)
[2025-02-28 02:56] LABS: Influenza A Ag Negative; Influenza B Ag Negative
[2025-02-28 03:10] LABS: Free T3 3.0 pg/mL (2.3-4.2); Free T4 (Free Thyroxine) 1.63 ng/dL (0.89-1.76)
--- NOTE | 2025-02-28 04:33 | PRELIM_ITS ---
CT scan of the chest, abdomen, and pelvis with intravenous contrast (axial sections with sagittal and coronal reformats) February 28, 2025 03:10 hours Clinical History: Chest/abdominal pain. Comparison: No prior study is available for comparison. Findings: Bibasilar streaky atelectasis is present. There is no pleural effusion or pneumothorax. The aorta is unremarkable without evidence of dissection or aneurysm. No evidence of mediastinal mass or lymphadenopathy. There is no pericardial effusion. Fatty infiltration of the liver is noted. There is a 2 cm cyst in the right kidney. The gallbladder, spleen, pancreas, adrenals, and left kidney are unremarkable. There are bowel anastomosis sutures in the right upper quadrant. There are markedly dilated small bowel loops with air-fluid levels and transition at the level of the ileum. The urinary bladder is incompletely distended with apparent wall thickening. There is no free fluid or air. The aorta and its branches demonstrate atheromatous calcification without evidence of aneurysm. Degenerative changes are identified in the spine. Impression: Findings suggestive of small bowel obstruction likely due to adhesions. Recommend clinical correlation and follow-up. Other findings as described above. Discussion Details: Results verbally communicated to : Dr Sumner at 04:23 AM 02/28/2025 Report Electronically Signed By: Lencho Trejo 02/28/2025 4:33:07 AM [EST]
[2025-02-28 04:57] LABS: Reflex Lactate? Y
--- NOTE | 2025-02-28 05:19 | XR_ITS ---
Exam: XR chest 1 view post procedure, 02/28/2025, 07:01:54 AM Indication: Post NG tube placement COMPARISON: Chest radiograph 04/04/2024 Findings: Nasogastric tube is identified in the left upper quadrant, with side port in the expected location of the proximal gastric antrum. Redemonstration of mild elevation of the right hemidiaphragm. No focal parenchymal lesion. No pleural effusion. No pneumothorax. The cardiomediastinal silhouette is unremarkable. No acute osseous abnormalities. Multilevel thoracic spondylosis. Mild biphasic thoracolumbar spinal curvature. IMPRESSION: NG tube in the proximal stomach, in satisfactory position. No evidence of acute cardiopulmonary disease.
[2025-02-28 05:26] LABS: Lactic Acid, 3 HR 1.3 mMol/L (0.4-2.0)
--- NOTE | 2025-02-28 05:26 | PD.RESHP ---
Documentation for date of: 02/28/25 HPI History of Present Illness History of present illness: 64yo female with history of colorectal CA s/p right colectomy, exploratory laparotomy with lysis of adhesions, excision of 2 intra-abdominal masses here with sudden severe abdominal pain and vomiting. Patient admitted for SBO. ED Course Summary: VS T 97.8 HR 77 RR 20 BP 125/71 Ox 99% RA Labs ESR 73, Creatinine 1.4, Lactic Acid 3.1, CRP 7.9, TSH 9.5. UA unremarkable. Imaging: US gallbladder: pending read; CTAP: Preliminary read suggestive of SBO likely due to adhesions Tx: IVF, zofran 4mg IV, Toradol 50mg IV, Dilaudid 1mg IV. NGT placed General surgery Dr. Gordon was consulted for concern for SBO Upon initial examination patient is laying comfortable in the gurney with her daughter present. She states that the zofran and dilaudid really helped her nausea and pain control. She currently has an appetite. She reports feeling noxious and vomiting due to pain while in the ED. Her symptoms began today when she had a BM later than expected and felt constipated. She usually passes stool once per day. She pooped a small amount (normal for her) at 9pm then felt more discomfort and passed stool one more time at midnight, more fluid-like. She describes her pain as coming and going for about 20-30 seconds at a time and feeling crampy. It is located more in her right upper quadrant. She had surgery last February at [place] with Dr. Ann, and her most recent colonoscopy last month was fine. She has CT scans every three months to monitor her cancer. She reports feeling cold and less energetic since her chemotherapy and surgery last year but has not been constipated or lethargic. Code: full Insulin: no Medical Hx: cecal adenocarcinoma s/p R colectomy, uterine mass, uterine mass, CVA (TIA), wayne-appendiceal abscesses Medications: None Allergies: KNA Surgical history: As seen above Fhx: Noncontributory Living: With daughter Work: [employer] Alcohol: Denies Cigarettes/tobacco: Denies Recreational drugs: Denies Patient admitted for: SBO All 12 systems reviewed and were negative except otherwise stated in HPI. Exam Vital Signs Temp Pulse Resp BP Pulse Ox O2 Del Method 97.7 F 72 18 122/64 98 Room Air 11/03/25 03:48 02/28/25 03:48 02/28/25 03:48 02/28/25 03:48 02/28/25 03:48 02/28/25 03:48 Narrative Exam GENERAL APPEARANCE: AOx4. NAD, activity normal for age, well developed/ well nourished, no cyanosis, pallor, or diaphoresis. HEENT: Normocephalic atraumatic, no facial trauma, neck is supple. Lids/conjunctiva normal. Mucous membranes moist, nares normal, lips/teeth normal uvula midline without oral pharyngeal erythema, exudate or swelling TMs normal bilaterally. No lymphangitis/lymphedema. CARDIAC: Regular rate and rhythm, S1+S2 heard. No murmurs, rubs, or gallops noted RESPIRATORY: respiratory effort normal, speaks in full sentences, no tripod position, no accessory muscle use. Lungs clear to auscultation without rhonchi, wheezes, rales ABDOMINAL: NBS. Soft, ND/NT, moderately TTP on RUQ 310. No evidence of fluid wave. No pulsatile masses on exam, rebound tenderness, Mendenhall sign or pain over Mcburney's point. MUSCLES/EXTREMITIES: No abnormal range of motion, no swelling. DERM: Warm, pink and dry. No rashes, dermatoses, petechiae or lesions. NEUROLOGICAL: Speech is clear and appropriate. Normal level of consciousness. Gait and coordination are normal. 5/5 strength in all extremities. PSYCH: Normal mood and affect. Judgement/competence is appropriate Results: Labs 03/03/25 05:00 03/03/25 05:00 Labs: Short CBC 02/28/25 Range/Units 01:51 WBC 7.9 (3.6-11.0) Thou/mm3 Hgb 11.2 L (12.0-16.0) g/dL Hct 34.0 L (36.0-46.0) % Plt Count 225 (140-440) Thou/mm3 BMP 02/28/25 01:51 Sodium 143 Potassium 3.8 Chloride 108 H Carbon Dioxide 21.7 BUN 24 H Creatinine 1.4 H Glucose 124 H Calcium 10.3 Cardiac Enzymes 02/28/25 Range/Units 01:51 Troponin I < 0.002 (0.0-0.045) ng/mL Liver Function 02/28/25 Range/Units 01:51 Total Bilirubin 0.4 (0.3-1.2) mg/dL Direct Bilirubin 0.1 (0.0-0.3) mg/dL AST 19 (0-34) U/L ALT 20 (10-49) U/L Alkaline Phosphatase 98 (46-116) U/L Albumin 4.9 H (3.4-4.8) gm/dL Urine 02/28/25 Range/Units 02:15 Urine Color Colorless A (Lt Yel-Yel) Urine Clarity Clear (Clear/Hazy) Urine pH 6.0 (5.0-7.0) Ur Specific [place] 1.014 (1.001-1.035) Urine Protein 1+ A (Neg - Trace) Urine Glucose (UA) Negative (Negative) ABG Interpretation ABG results: 02/28/25 01:51 VBG pH 7.46 VBG pCO2 30 L VBG pO2 54 VBG Base Excess -2 Quality Measures Quality Measures VTE prophylaxis and none Medications Home Medications and Allergies Home Medications ?Medication ?Instructions ?Recorded ?Confirmed ?Type No Known Home Medications 02/28/25 02/28/25 History Allergies Allergy/AdvReac Type Severity Reaction Status Date / Time No Known Allergies Allergy Verified 04/04/24 16:36 Visit Medications Acetaminophen (Acetaminophen 325 Mg Tablet) 650 mg PO Q6H PRN PRN Reason: Fever >100.4 or pain 1-3 Stop: 03/30/25 05:20 Sodium Chloride (Ns) 1,000 mls @ 75 mls/hr IV .[id number] [facility] Stop: 03/30/25 05:29 Ondansetron HCl (Ondansetron Inj 2 Mg/Ml Inj 2 Ml) 4 mg IVP Q6H PRN; Protocol PRN Reason: NAUSEA OR VOMITING Stop: 03/30/25 05:20 Pantoprazole Sodium (Pantoprazole Inj 40 Mg Vial) 40 mg IVP QDAY [facility] Stop: 03/30/25 08:59 Discontinued Medications Benzocaine (Benzocaine 20% (Hurricaine) Curtis 1 Dose) 0 dose TOP X1 ONE Stop: 02/28/25 05:20 Hydromorphone HCl (Hydromorphone Inj 2 Mg/Ml Vial) 1 mg IVP X1 ONE Stop: 02/28/25 01:25 Last Admin: 02/28/25 02:01 Dose: 1 mg Sodium Chloride (Ns) 1,000 mls @ 999 mls/hr IV .Q1H1M ONE Stop: 02/28/25 02:24 Last Infusion: 02/28/25 03:05 Dose: Infused Ketorolac Tromethamine (Ketorolac Inj 30 Mg/Ml Vial) 15 mg IVP X1 ONE Stop: 02/28/25 01:25 Last Admin: 02/28/25 02:02 Dose: 15 mg Ondansetron HCl (Ondansetron Inj 2 Mg/Ml Inj 2 Ml) 4 mg IVP X1 ONE; Protocol Stop: 02/28/25 01:25 Last Admin: 02/28/25 02:02 Dose: 4 mg Assessment & Plan Plan 64yo female with history of colorectal CA s/p right colectomy, exploratory laparotomy with lysis of adhesions, excision of 2 intra-abdominal masses here with sudden severe abdominal pain and vomiting. Patient admitted for SBO. #SBO #Lactic acidosis Reports nausea vomiting due to abdominal pain that comes and goes and is located in the RUQ. Lactica yael 3.1 ESR 73 CRP 7.9 most likely nonspecific signs of inflammation. CTAP preliminary read shows SBO pattern. Pending US gallbladder read. [place] sign negative. Hx of multiple abdominal surgeries and lysis of adhesions. Started on NGT with LIS. Pending cessation of vomiting can consider SBFT. Plan: -NGT LIS -NPO -FUP lipase:__ -General Surgery Dr. Gordon consulted -Gentle fluids IVF rate 60mL/hr -FUP blood cx:___ #Subclinical Hypothyroidism TSH 9.5 T 1.63 T3 3, Patient only has symptoms of cold and less energy which also correspond to major surgeries. Denies any constipation or bradycardia. Plan: -FUP outpatient #Hx of Colorectal ca #S/P right colectomy Followed by general surgery No signs of recurrence, last colonoscopy 3 years ago Health Maintenance: Code status: Full DVT prophylaxis: SCDs GI prophylaxis: Famotidine Diet: NPO Zapien: None Lines: PIV Supplemental O2: None Disposition: Admitted to med surg for SBO Patient seen and reviewed with attending Dr. Puga. Note written by Holger Roldan MD PGY-1 Attending Provider Attestation/Addendum After examination of the patient and review of the clinical data I feel that this patient needs admission to the hospital for further treatment/evaluation. Plan of care discussed with patient and is in agreement. I Silva Puga MD, attest that I was physically present for francisco portions of evaluation, and examined patient, labs and imagings and plan of care were discussed with IM residents team, and I agree with the findings and plans documented above.
[2025-02-28] MEDS: SODIUM CHLORIDE 0.9% 1000 ML 1,000 ML 60 ML IV ×2 (06:44→22:40)
--- NOTE | 2025-02-28 07:12 | PC.NURSE ---
Report given to FAHEEM Sánchez
--- NOTE | 2025-02-28 07:18 | PC.NURSE ---
Report given to FAHEEM Sánchez
--- NOTE | 2025-02-28 08:04 | XR_ITS ---
XR SMALL BOWEL SINGLE CONTRAST Exam date and time: 02/28/2025, 11:27 a.m. HISTORY: Possible bowel obstruction COMPARISON: CT chest abdomen pelvis of 02/28/2025 at 3:13 a.m., CT abdomen and pelvis 04/04/2024 at 7:34 p.m. TECHNIQUE: [facility]idential [facility] Worker KUB radiograph initially obtained and reviewed. Subsequently, water soluble contrast was administered and multiple overhead radiographs were obtained. 5 images total were submitted for review. FINDINGS: NG tube is in the proximal stomach. Normal opacification of the stomach without evidence for mass or ulcer. No gastric outlet obstruction. Contrast passes throughout small bowel loops and is visualized in dilated small bowel in the right hemiabdomen at [address] shows the patient has had a right hemicolectomy. Subsequent radiograph at 3 hours shows contrast in the descending colon, sigmoid colon and rectum. IMPRESSION: Partial small bowel obstruction with transition zone at the ileotransverse colonic anastomosis. This report was generated using speech recognition software.
--- NOTE | 2025-02-28 08:28 | PD.SURCONS ---
HPI Consult details Consult date: 02/28/25 Reason for consultation narrative: Small bowel obstruction History of present illness: 64-year-old female with history of cecal cancer status post right colectomy. She has had colonoscopy 3 years ago without evidence of recurrence. She developed peritoneal metastasis, underwent excisions 2 years ago. She was evaluated at [place] last year and underwnet HIPEC. She started developing right sided abdominal pain last night associated with nausea and vomiting. She denies wt loss, changes in bowel habits or blood per rectum. CT scan revealed dilated loops of small bowel suspicious for SBO. NG tube was placed and patient was admitted. Review of Systems Constitutional Constitutional: Denies chills, Denies fever(s) and Denies weight loss Cardiovascular Cardiovascular: Denies chest pain Respiratory Respiratory: Denies cough Gastrointestinal Gastrointestinal: Reports abdominal pain, Reports nausea and Reports vomiting Genitourinary Genitourinary: Denies difficulty voiding Musculoskeletal Musculoskeletal: Denies back pain Hematologic/Lymphatic Hematologic/Lymphatic: Denies easy bleeding and Denies easy bruising Past Medical History Surgical History OTHER SURGICAL HX: Right colectomy, DIXIE with bilateral salpingectomy, HIPEC Social History SMOKING STATUS: Never smoker SUBSTANCE USE: does not use ALCOHOL: Never Meds Home Medications and Allergies Home Medications ?Medication ?Instructions ?Recorded ?Confirmed ?Type No Known Home Medications 02/28/25 02/28/25 History Allergies Allergy/AdvReac Type Severity Reaction Status Date / Time No Known Allergies Allergy Verified 04/04/24 16:36 Exam Vital Signs Temp Pulse Resp BP Pulse Ox O2 Del Method 97.9 F 71 18 117/69 97 Room Air 02/28/25 08:00 02/28/25 08:00 02/28/25 08:00 02/28/25 08:00 02/28/25 08:00 02/28/25 08:00 Constitutional Constitutional: no acute distress Routine Abdominal Exam Comments: Abdomen is soft and mildly distended. Hypoactive bowel sounds. No evidence of peritonitis at this time Results Results: Laboratory Laboratory results: results reviewed Results: Imaging CT scan - abdomen: report reviewed and image reviewed CT scan - pelvis: report reviewed and image reviewed Assessment & Plan Problem List (1) SBO (small bowel obstruction): Status: Acute Plan Will obtain SBS
--- NOTE | 2025-02-28 11:14 | PC.CC ---
ASW completed the initial assessment with the pts Next of Kin, daughter, Minda Roach [phone] as pt presented with shortness of breath. Per Minda Lam, the pts PCP is Dr. Steven Ceron and her speciality is Dr. Lauren Ann, Oncology at [facility]. Pts pharmacy is [facility], she does her own ADLs and does not use DME or O2. Pts daughter Minda Lam will provide transportation home upon d/c. Pts daughter confirmed her demographics and supports. Pts daughter stated the pt is her own decision maker but if a surrogate decision maker is needed, the pt daughter Minda Lam is the surrogate decision maker. Per Minda Lam, the pt is a Full Code and will go home upon d/c. PCP: Dr. Steven Ceron Specialty: Dr. Lauren Ann, Oncology at [facility]. Own Decision Maker, but if needed Minda Lam is the surrogate decision maker Transportation by Minda Lam Will d/c home
--- NOTE | 2025-02-28 13:45 | ESPR_ITS ---
<Statement entered by Elmer Warren MD - 02/28/25 16:57> Patient is admitted overnight in view of small bowel obstruction. NG tube was placed and Gastrografin series were started. General surgeon, Dr. Gordon is consulted and recommended to continue the small bowel series. Patient had history of adenocarcinoma of the colon for which she underwent surgery and is currently in remission. Will follow-up with small bowel series and watch for bowel movements. I have personally seen and examined the patient, agree with residents assessment and plan Patient plan of care was discussed with the attending physician, Dr. Sofi Warren, PGY2 Documentation for date of: 02/28/25 Subjective Subjective Interval history: Patient seen this morning resting comfortably in bed with daughter at bedside. Reports significant improvement in abdominal pain. Denies nausea or vomiting since NG tube placement. No flatus or bowel movement overnight. NG tube was in but was not placed in suction yet. Denies fever, chills, dizziness, or shortness of breath. Surgery team (Dr. Gordon) following; plan for small bowel series pending. Exam Vital Signs Temp Pulse Resp BP Pulse Ox O2 Del Method 97.3 F 90 18 97/65 90 L Room Air 02/28/25 11:50 02/28/25 11:50 02/28/25 11:50 02/28/25 11:50 02/28/25 11:50 02/28/25 08:00 Narrative Exam General: Awake, alert, oriented, NAD HEENT: MMM, NG tube in place with bilious drainage Cardiac: RRR, S1/S2, no murmurs/rubs/gallops Lungs: Clear to auscultation bilaterally, non-labored breathing Abdomen: Soft, mildly distended, hypoactive bowel sounds, mild RUQ tenderness, no rebound or guarding Extremities: No edema, pulses palpable Neuro: AOx4, normal speech, no focal deficits Skin: Warm, dry, intact Objective Labs 02/28/25 01:51 02/28/25 01:51 Labs: Laboratory Results - last 24 hr 02/28/25 02/28/25 02/28/25 01:51 02:15 05:22 WBC 7.9 RBC 3.90 L Hgb 11.2 L Hct 34.0 L MCV 87 MCH 28.7 MCHC 32.9 RDW Std Deviation 46.4 H Plt Count 225 Neut % (Auto) 79 Lymph % (Auto) 16 Edgar % (Auto) 4 Eos % (Auto) 0 Baso % (Auto) 0 Neut # (Auto) 6.2 Lymph # (Auto) 1.3 Edgar # (Auto) 0.3 Eos # (Auto) 0.0 Baso # (Auto) 0.0 Immature Gran # (Auto) 0.01 H Absolute Nucleated RBC 0.00 Immature Gran % 0 Nucleated RBC % 0 ESR 73 H VBG pH 7.46 VBG pCO2 30 L VBG pO2 54 VBG O2 Sat (Alessandra) 86 L VBG Base Excess -2 Sodium 143 Potassium 3.8 Chloride 108 H Carbon Dioxide 21.7 Anion Gap 13 BUN 24 H Creatinine 1.4 H Estim Creat Clear Calc Not Performed. eGFR 43 L BUN/Creatinine Ratio 17 Glucose 124 H Calculated Osmolality 289 Lactic Acid 3.1 H 1.3 Calcium 10.3 Corrected Calcium 10.3 H Magnesium 1.8 Total Bilirubin 0.4 Direct Bilirubin 0.1 AST 19 ALT 20 Alkaline Phosphatase 98 Troponin I < 0.002 C-Reactive Prot, Quant 7.9 H B-Natriuretic Peptide < 20 Total Protein 7.5 Albumin 4.9 H Globulin 2.6 Albumin/Globulin Ratio 1.9 Amylase 84 Lipase 29 Beta-Hydroxybutyrate/Acetoacetate 0.1 Procalcitonin 0.10 TSH 9.51 H Free T4 1.63 Free T3 pg/dL 3.0 Ur Collection Type Clean Catch Urine Color Colorless A Urine Clarity Clear Urine pH 6.0 Ur Specific [place] 1.014 Urine Protein 1+ A Urine Glucose (UA) Negative Urine Ketones Negative Urine Blood Trace Urine Nitrite Negative Urine Bilirubin Negative Urine Urobilinogen (Auto) Negative Ur Leukocyte Esterase Negative Urine RBC 1 Urine WBC 1 Ur Squamous Epith Cells 1 Urine Bacteria None Ur Culture Indicated? Not Indicated Influenza A (Rapid) Negative Influenza B (Rapid) Negative ABG Interpretation ABG results: 02/28/25 01:51 VBG pH 7.46 VBG pCO2 30 L VBG pO2 54 VBG Base Excess -2 Quality Measures Quality Measures none Assessment & Plan Assessment Current Active Medications: Generic Name Dose Route Start Last Admin Trade Name Freq PRN Reason Stop Dose Admin Acetaminophen 650 mg 02/28/25 05:21 Acetaminophen 325 Mg Tablet PO 03/30/25 05:20 Q6H PRN Fever >100.4 or pain 1-3 Sodium Chloride 1,000 mls @ 60 mls/hr 02/28/25 05:30 02/28/25 06:44 Ns IV 03/30/25 05:29 60 mls/hr .[id number] MOI Administration Ondansetron HCl 4 mg 02/28/25 05:21 Ondansetron Inj 2 Mg/Ml Inj 2 Ml IVP 03/30/25 05:20 Q6H PRN NAUSEA OR VOMITING Protocol Pantoprazole Sodium 40 mg 02/28/25 09:00 02/28/25 09:16 Pantoprazole Inj 40 Mg Vial IVP 03/30/25 08:59 40 mg QDAY MOI Administration Plan 64-year-old female with history of cecal adenocarcinoma s/p right colectomy and HIPEC in remission, admitted with SBO likely secondary to post-surgical adhesions, currently improving with NG tube decompression and conservative management. # SBO Likely adhesive SBO in setting of prior abdominal surgeries (R colectomy, HIPEC). Plan: * Continue NGT to LIS * Maintain NPO * IV fluids at 60 mL/hr * Monitor NG output, abdominal exam, and return of bowel function * Repeat lactic acid and BMP today * Pain control: IV Toradol/Dilaudid PRN * Antiemetic: Zofran PRN * Follow surgery for small bowel series plan * Notify surgery if increased distention, worsening pain, or peritonitis # Lactic Acidosis (resolved) Likely secondary to hypoperfusion from SBO; patient hemodynamically stable. Trended back to 1.3 normal Plan: * Continue gentle IVF resuscitation * Monitor urine output and vitals closely # Subclinical Hypothyroidism TSH mildly elevated (9.5) with normal T4, clinically euthyroid. Plan: * No inpatient treatment indicated * Outpatient follow-up with PCP after discharge # History of Colorectal Cancer s/p Right Colectomy and HIPEC Remission since February 2024; last CT at [place] (Dec 2024) with no recurrence. Plan: * Continue oncology surveillance outpatient * No acute inpatient needs Health Maintenance Code Status: Full Diet: NPO DVT Prophylaxis: SCDs GI Prophylaxis: PPI Lines/Tubes: PIV, NGT to LIS Disposition: Continue conservative management; general surgery following; anticipate resolution with NGT and supportive care ----- Plan discussed with attending physician Dr. Bishwakarma and senior resident Dr. Briana Rice MD PGY-1 Internal Medicine Attending Provider Attestation/Addendum I have seen and examined the patient. I was physically present for the francisco portions of the services provided including history, physical exam, diagnosis, treatment plans and orders. I agree with assessment and plan of care as documented by residents. Patient is a 64 years old female with past medical history of colorectal carcinoma status post right colectomy, exploratory laparotomy with lysis of adhesions, excision of 2 intra-abdominal masses who was admitted overnight for management of his small bowel obstruction. General surgery has been following closely, patient has been started on small bowel series. At bedside, patient appears comfortable, denies any nausea or vomiting. Also denies abdominal pain. But she has not passed any gas or bowel. Small bowel series revealed partial SBO and contrast reached colon. We will discontinue NG tube and await bowel movement. Even though this this note was carefully revised there may still be minor errors in marketing operations manager due to voice recognition software. Maria Del Carmen Farah MD
[2025-03-01] VITALS: BP 107/61; PULSE 72; RESP 16; TEMP 37.1; O2SAT 96
[2025-03-01 04:00] VITALS: BP 106/82; PULSE 68; RESP 18; TEMP 36.3; O2SAT 96
[2025-03-01 05:40] LABS: Basophils # (Auto) 0.0 Thou/mm3 (0.0-0.2); Basophils % (Auto) 0 % (0-2.5); Eosinophils # (Auto) 0.1 Thou/mm3 (0.0-0.5); Eosinophils % (Auto) 2 % (0-10); Hematocrit 29.4 % (36.0-46.0); Hemoglobin 9.2 g/dL (12.0-16.0); Immature Granulocytes Auto 0.01 Thou/mm3 (0.00-0.00); Lymphocytes # (Auto) 0.9 Thou/mm3 (1.0-4.8); Lymphocytes % (Auto) 30 % (10-50); Mean Corpuscular HGB Conc 31.3 g/dl (31.0-37.0); Mean Corpuscular Hemoglobin 28.5 pg (25.0-35.0); Mean Corpuscular Volume 91 fL (80-100); Monocytes # (Auto) 0.2 Thou/mm3 (0.0-0.8); Monocytes % (Auto) 6 % (0-12); Neutrophils # (Auto) 1.9 Thou/mm3 (1.8-7.7); Neutrophils % (Auto) 62 % (37-80); Nucleated Red Blood Cell # 0.00 Thou/mm3 (0.00-0.00); Nucleated Red Blood Cell % 0 /100 WBC (0); Platelet Count 185 Thou/mm3 (140-440); RDW Standard Deviation 48.7 fL (36.4-46.3); Red Blood Count 3.23 Miln/mm3 (4.00-5.20); White Blood Count 3.1 Thou/mm3 (3.6-11.0)
[2025-03-01 06:14] LABS: Alanine Aminotransferase 15 U/L (10-49); Albumin, Serum 3.7 gm/dL (3.4-4.8); Albumin/Globulin Ratio 1.9 (1.2-2.2); Alkaline Phosphatase 72 U/L (46-116); Anion Gap 11 (7-16); Aspartate Amino Transferase 14 U/L (0-34); BUN/Creatinine Ratio 13 Ratio (12-20); Bilirubin,Total 0.4 mg/dL (0.3-1.2); Blood Urea Nitrogen 15 mg/dL (9-23); Calcium 8.8 mg/dL (8.3-10.6); Calcium (Corrected) 9.0 mg/dL (8.5-10.1); Carbon Dioxide 20.7 mMol/L (20.0-31.0); Chloride 117 mMol/L (98-107); Creatinine (Component) 1.2 mg/dL (0.6-1.3); Estimated Creatinine Clearance 36.7 mL/min (>60); Globulin 1.9 gm/dL (2.3-3.5); Glucose 90 mg/dL (74-106); Lipase 24 U/L (12-53); Magnesium 1.9 mg/dL (1.6-2.6); Osmolality,Calculated 296 (275-295); Phosphorous 3.9 mg/dL (2.4-5.1); Potassium 3.8 mMol/L (3.4-5.1); Sodium 149 mMol/L (136-145); Total Protein 5.6 gm/dL (5.7-8.2); eGFR 51 See Note
[2025-03-01 07:29] VITALS: BP 114/62; PULSE 71; RESP 16; TEMP 36.4; O2SAT 98
[2025-03-01] MEDS: SODIUM CHLORIDE 0.9% 1000 ML 1,000 ML 125 ML IV (09:25)
--- NOTE | 2025-03-01 10:19 | PD.SURPROG ---
Documentation for date of: 03/01/25 Subjective Subjective Narrative: Patient is seen and examined. She is feeling much better. She had multiple bowel movements Exam Vital Signs Temp Pulse Resp BP Pulse Ox O2 Del Method 97.5 F 71 16 114/62 98 Room Air 03/01/25 07:29 03/01/25 07:29 03/01/25 07:29 03/01/25 07:29 03/01/25 07:29 03/01/25 07:29 Constitutional Constitutional: no acute distress Routine Abdominal Exam Comments: Abdomen is soft and nondistended. Bowel sounds are present Assessment & Plan Assessment Additional comments: Small bowel obstruction resolving Plan DC NG tube and start patient on liquid diet. May advance diet as tolerated
[2025-03-01 11:49] VITALS: BP 112/66; PULSE 72; RESP 16; TEMP 36.4; O2SAT 97
--- NOTE | 2025-03-01 14:33 | PD.RESDS ---
Planned Discharge Date 03/01/25 DS: Providers Provider Date of admission: 02/28/25 05:20 Primary care physician: Steven Ceron MD Admitting Provider: Silva Puga MD Attending Provider on Admission: Silva Puga MD Consults: 02/28/25 04:39 Consult to General Surgery Stat Comment: SBO Consulting Provider: Aleks Gordon Attending Provider on DC: Romel Rice MD Discharging Provider: Romel Rice MD Hospital Course Hospital Course Hospital course: Patient seen this morning resting comfortably in bed with daughter at bedside. Reports significant improvement in abdominal pain. Denies nausea or vomiting since NG tube placement. No flatus or bowel movement overnight. NG tube was in but was not placed in suction yet. Denies fever, chills, dizziness, or shortness of breath. Surgery team (Dr. Gordon) following; plan for small bowel series pending. Time Spent with Patient Time attestation: Total time spent providing and/or coordinating discharge services: Exam Vital Signs Temp Pulse Resp BP Pulse Ox O2 Del Method 97.6 F 72 16 112/66 97 Room Air 03/01/25 11:49 03/01/25 11:49 03/01/25 11:49 03/01/25 11:49 03/01/25 11:49 03/01/25 11:49 Discharge Plan Prescriptions/Referrals Prescriptions/Med Rec: No Action No Known Home Medications Referrals: Osmany (PCP)Steven MD [Primary Care Provider, Family Practice] Patient/Caregiver Discharge Instructions Print Language: Setswana
--- NOTE | 2025-03-01 14:48 | ESPR_ITS ---
<Statement entered by Chyna Vanegas MD - 03/02/25 07:53> Patient was seen and examined by me personally. I have directly supervised and reviewed documentation by the team resident and agree with its findings with any exceptions or additional findings as below. Plan of care was discussed with the attending, Dr. Farah. Chyna Vanegas, PGY-3 Documentation for date of: 03/01/25 Subjective Subjective Interval history: Patient seen today resting comfortably in bed, alert and cooperative. Reports four bowel movements since admission, with no abdominal distention or discomfort. She tolerated the clear liquid diet well and will have a regular diet for dinner to assess tolerance. No new nausea or vomiting. Blood culture preliminary report grew gram-positive cocci from both anaerobic and aerobic cultures, consistent with a potential bloodstream infection. Repeat blood cultures have been ordered, and the patient is remaining inpatient for further observation and culture results. No signs of hemodynamic instability or new fever at this time. Exam Vital Signs Temp Pulse Resp BP Pulse Ox O2 Del Method 97.6 F 72 16 112/66 97 Room Air 03/01/25 11:49 03/01/25 11:49 03/01/25 11:49 03/01/25 11:49 03/01/25 11:49 03/01/25 11:49 Narrative Exam General: Awake, alert, NAD HEENT: MMM, NG tube removed, no signs of infection or trauma Cardiac: RRR, no murmurs Lungs: Clear bilaterally, non-labored respirations Abdomen: Soft, nondistended, normoactive bowel sounds, no rebound or guarding Extremities: No edema, pulses palpable Neuro: AOx4, no focal deficits Skin: Warm, dry, intact Objective Labs 03/01/25 05:10 03/02/25 05:25 Labs: Laboratory Results - last 24 hr 03/01/25 05:10 WBC 3.1 L D RBC 3.23 L Hgb 9.2 L D Hct 29.4 L MCV 91 MCH 28.5 MCHC 31.3 RDW Std Deviation 48.7 H Plt Count 185 D Neut % (Auto) 62 Lymph % (Auto) 30 [place] % (Auto) 6 Eos % (Auto) 2 Baso % (Auto) 0 Neut # (Auto) 1.9 Lymph # (Auto) 0.9 L [place] # (Auto) 0.2 Eos # (Auto) 0.1 Baso # (Auto) 0.0 Immature Gran # (Auto) 0.01 H Absolute Nucleated RBC 0.00 Immature Gran % 0 Nucleated RBC % 0 Sodium 149 H Potassium 3.8 Chloride 117 H Carbon Dioxide 20.7 Anion Gap 11 BUN 15 Creatinine 1.2 Estim Creat Clear Calc 36.7 L eGFR 51 L BUN/Creatinine Ratio 13 Glucose 90 Calculated Osmolality 296 H Calcium 8.8 D Corrected Calcium 9.0 Phosphorus 3.9 Magnesium 1.9 Total Bilirubin 0.4 AST 14 ALT 15 Alkaline Phosphatase 72 D Total Protein 5.6 L Albumin 3.7 D Globulin 1.9 L Albumin/Globulin Ratio 1.9 Lipase 24 ABG Interpretation ABG results: 02/28/25 01:51 VBG pH 7.46 VBG pCO2 30 L VBG pO2 54 VBG Base Excess -2 Quality Measures Quality Measures VTE prophylaxis Assessment & Plan Assessment Current Active Medications: Generic Name Dose Route Start Last Admin Trade Name Freq PRN Reason Stop Dose Admin Acetaminophen 650 mg 02/28/25 05:21 Acetaminophen 325 Mg Tablet PO 03/30/25 05:20 Q6H PRN Fever >100.4 or pain 1-3 Doxycycline Hyclate 100 mg 03/01/25 15:00 Doxycycline 100 Mg Tablet PO 03/08/25 14:59 BID MOI Sodium Chloride 1,000 mls @ 125 mls/hr 03/01/25 08:38 03/01/25 09:25 Ns IV 03/01/25 16:37 125 mls/hr .Q8H ONE Administration Ondansetron HCl 4 mg 02/28/25 05:21 Ondansetron Inj 2 Mg/Ml Inj 2 Ml IVP 03/30/25 05:20 Q6H PRN NAUSEA OR VOMITING Protocol Pantoprazole Sodium 40 mg 02/28/25 09:00 03/01/25 09:26 Pantoprazole Inj 40 Mg Vial IVP 03/30/25 08:59 40 mg QDAY MOI Administration Plan 64-year-old female with history of colorectal cancer s/p right colectomy and HIPEC, admitted for SBO likely secondary to adhesions, now improving with return of bowel function and tolerance of clear liquid diet. Blood cultures positive for gram-positive cocci, currently pending repeat cultures. # SBO Likely secondary to adhesions from previous surgeries. Clinically improving, with four bowel movements, and tolerating clear liquids. Plan: * Advance to regular diet at dinner and monitor for tolerance * Continue IV fluids at maintenance rate * Monitor abdominal exam and bowel function * Monitor for return of normal bowel function (flatus/BM) # Bloodstream Infection (Bacteremia) Blood cultures positive for gram-positive cocci from both anaerobic and aerobic cultures. Repeat cultures ordered. Plan: * Started doxycycline 100 mg twice daily. (03/01? ) * Monitor for signs of sepsis or worsening infection (fever, tachycardia, hypotension) * Follow-up blood cultures to guide therapy * If stable, plan for discharge once infection controlled # Hypernatremia Mild hypernatremia (Na 149). No clinical symptoms of hypernatremia. Plan: * Continue IV fluids with appropriate monitoring of sodium levels * Encourage PO hydration once regular diet tolerated # Lactic Acidosis (Resolved) Lactic acid 1.3, no signs of worsening metabolic acidosis. Plan: * No further monitoring required unless clinical change * Continue supportive care # Chronic Anemia Hgb stable at 9.2, consistent with patient?s chronic anemia. Plan: * Monitor CBC for any further decline * Transfusion not indicated at this time Health Maintenance: Code Status: Full Diet: Regular diet once tolerated DVT Prophylaxis: SCDs Lines/Tubes: PIV Disposition: Continue inpatient management with monitoring for infection and SBO resolution. ----- Plan discussed with attending physician Dr. Farah and senior resident Dr. Romina Rice MD PGY-1 Internal Medicine Attending Provider Attestation/Addendum I have seen and examined the patient. I was physically present for the francisco portions of the services provided including history, physical exam, diagnosis, treatment plans and orders. I agree with assessment and plan of care as documented by residents. Patient seen and examined at bedside this morning. Appears comfortable and denies any new complaints. Small bowel series only showed partial obstruction. Patient had 2 bowel movements. Abdomen is soft and benign. We will discontinue the NG tube and start patient on clear liquid diet. Patient has been afebrile, does not have leukocytosis, however grew GPC's in 2/2 samples from blood culture, we will start her on IV antibiotics and wait for culture results. Meanwhile we will slowly advance her diet and monitor if she can tolerate. Even though this this note was carefully revised there may still be minor errors in embedded firmware engineer due to voice recognition software. Maria Del Carmen Farah MD
[2025-03-01 15:59] VITALS: BP 122/71; PULSE 71; RESP 16; TEMP 36.3; O2SAT 97
[2025-03-01] MEDS: DOXYCYCLINE 100 MG TABLET PO ×2 (16:11→20:57)
[2025-03-01 20:00] VITALS: BP 117/64; PULSE 69; RESP 18; TEMP 36.2; O2SAT 94
[2025-03-02] VITALS: BP 111/63; PULSE 73; RESP 16; TEMP 36.2; O2SAT 98
[2025-03-02 04:00] VITALS: BP 108/60; PULSE 74; RESP 18; TEMP 36.1; O2SAT 95
[2025-03-02 06:13] LABS: Alanine Aminotransferase 11 U/L (10-49); Albumin, Serum 3.7 gm/dL (3.4-4.8); Albumin/Globulin Ratio 1.9 (1.2-2.2); Alkaline Phosphatase 73 U/L (46-116); Anion Gap 9 (7-16); Aspartate Amino Transferase 13 U/L (0-34); BUN/Creatinine Ratio 11 Ratio (12-20); Bilirubin,Total 0.4 mg/dL (0.3-1.2); Blood Urea Nitrogen 11 mg/dL (9-23); Calcium 9.1 mg/dL (8.3-10.6); Calcium (Corrected) 9.3 mg/dL (8.5-10.1); Carbon Dioxide 21.5 mMol/L (20.0-31.0); Chloride 115 mMol/L (98-107); Creatinine (Component) 1.0 mg/dL (0.6-1.3); Estimated Creatinine Clearance 44.0 mL/min (>60); Globulin 1.9 gm/dL (2.3-3.5); Glucose 100 mg/dL (74-106); Magnesium 1.5 mg/dL (1.6-2.6); Osmolality,Calculated 288 (275-295); Phosphorous 3.2 mg/dL (2.4-5.1); Potassium 3.6 mMol/L (3.4-5.1); Sodium 145 mMol/L (136-145); Total Protein 5.6 gm/dL (5.7-8.2); eGFR > 60 See Note
[2025-03-02 08:00] VITALS: BP 136/71; PULSE 67; RESP 18; TEMP 36.3; O2SAT 97
[2025-03-02 08:31] LABS: Basophils # (Auto) 0.0 Thou/mm3 (0.0-0.2); Basophils % (Auto) 0 % (0-2.5); Eosinophils # (Auto) 0.1 Thou/mm3 (0.0-0.5); Eosinophils % (Auto) 1 % (0-10); Hematocrit 29.0 % (36.0-46.0); Hemoglobin 9.4 g/dL (12.0-16.0); Immature Granulocytes Auto 0.01 Thou/mm3 (0.00-0.00); Lymphocytes # (Auto) 1.2 Thou/mm3 (1.0-4.8); Lymphocytes % (Auto) 25 % (10-50); Mean Corpuscular HGB Conc 32.4 g/dl (31.0-37.0); Mean Corpuscular Hemoglobin 28.9 pg (25.0-35.0); Mean Corpuscular Volume 89 fL (80-100); Monocytes # (Auto) 0.3 Thou/mm3 (0.0-0.8); Monocytes % (Auto) 6 % (0-12); Neutrophils # (Auto) 3.1 Thou/mm3 (1.8-7.7); Neutrophils % (Auto) 67 % (37-80); Nucleated Red Blood Cell # 0.00 Thou/mm3 (0.00-0.00); Nucleated Red Blood Cell % 0 /100 WBC (0); Platelet Count 215 Thou/mm3 (140-440); RDW Standard Deviation 46.7 fL (36.4-46.3); Red Blood Count 3.25 Miln/mm3 (4.00-5.20); White Blood Count 4.7 Thou/mm3 (3.6-11.0)
[2025-03-02] MEDS: PANTOPRAZOLE 40 MG TABLET PO (09:06)
[2025-03-02] MEDS: DOXYCYCLINE 100 MG TABLET PO (09:06)
--- NOTE | 2025-03-02 11:06 | PC.SS ---
SS follow up note; Patient will possibly discharge home today.
[2025-03-02 12:00] VITALS: BP 130/77; PULSE 73; RESP 18; TEMP 36.6; O2SAT 92
[2025-03-02] MEDS: cefTRIAXone/D5w 2gm 2 GM/50 ML BAG IV (12:08)
--- NOTE | 2025-03-02 14:09 | PD.IDPROG ---
Subjective Subjective Interval history: hx of prior ca with gpc in bc and neg repeats. feels better though. no cvl noted. Exam Vital Signs Temp Pulse Resp BP Pulse Ox O2 Del Method 97.9 F 73 18 130/77 92 L Room Air 03/02/25 12:00 03/02/25 12:00 03/02/25 12:00 03/02/25 12:00 03/02/25 12:00 03/02/25 12:00 Narrative Exam was having some abd pain but that seems improved. had some bm's Objective - Internal Medicine Labs 03/02/25 05:25 03/02/25 05:25 Labs: Laboratory Results - last 24 hr 03/02/25 05:25 WBC 4.7 D RBC 3.25 L Hgb 9.4 L Hct 29.0 L MCV 89 MCH 28.9 MCHC 32.4 RDW Std Deviation 46.7 H Plt Count 215 D Neut % (Auto) 67 Lymph % (Auto) 25 [place] % (Auto) 6 Eos % (Auto) 1 Baso % (Auto) 0 Neut # (Auto) 3.1 Lymph # (Auto) 1.2 [place] # (Auto) 0.3 Eos # (Auto) 0.1 Baso # (Auto) 0.0 Immature Gran # (Auto) 0.01 H Absolute Nucleated RBC 0.00 Immature Gran % 0 Nucleated RBC % 0 Sodium 145 Potassium 3.6 Chloride 115 H Carbon Dioxide 21.5 Anion Gap 9 BUN 11 Creatinine 1.0 Estim Creat Clear Calc 44.0 L eGFR > 60 BUN/Creatinine Ratio 11 L Glucose 100 Calculated Osmolality 288 Calcium 9.1 Corrected Calcium 9.3 Phosphorus 3.2 Magnesium 1.5 L Total Bilirubin 0.4 AST 13 ALT 11 Alkaline Phosphatase 73 Total Protein 5.6 L Albumin 3.7 Globulin 1.9 L Albumin/Globulin Ratio 1.9 ABG Interpretation ABG results: 02/28/25 01:51 VBG pH 7.46 VBG pCO2 30 L VBG pO2 54 VBG Base Excess -2 Assessment & Plan A&P Narrative bacteremia vs contamination sbo, resolving hx of ca. no hx of recurrent ca will change abx but do not see a line to address so the pos bc is likely a contaminant. Time Spent With Patient Time: Total time spent is greater than 50% in coordination of care (as documented) at patient's floor/unit and/or counseling patient:
--- NOTE | 2025-03-02 14:31 | ESPR_ITS ---
<Statement entered by All Meyers MD - 03/17/25 07:50> I reviewed above note and agree with findings and plans. I have also personally examined the patient with medicine team and went over assessment and plan with medical team including chief of internal medicine and resident physician. <Statement entered by Elmer Warren MD - 03/02/25 15:08> Patient is seen and examined at bedside. No acute overnight events. Denies any other complaints vitals are stable. Physical examination remains unremarkable. Still waiting for final pending cultures. Infectious diseases Dr. Cotto is consulted and will appreciate his recommendations I have personally seen and examined the patient, agree with residents assessment and plan Patient plan of care was discussed with the attending physician, Dr. Mira Warren, PGY2 Documentation for date of: 03/02/25 Subjective Subjective Interval history: Patient seen today sitting up in bed, in good spirits, reports feeling well overall. States abdominal pain has completely resolved. Denies nausea, vomiting, bloating, or diarrhea. She is tolerating regular diet without discomfort and has had four bowel movements since yesterday morning. No fevers, chills, or sweats. Blood cultures from 02/28 grew gram-positive cocci from both aerobic and anaerobic bottles. Repeat cultures are pending. Infectious Disease was consulted, reviewed results, and recommended stopping empiric doxycycline while awaiting final culture speciation and sensitivities. Patient remains hemodynamically stable and afebrile. Exam Vital Signs Temp Pulse Resp BP Pulse Ox O2 Del Method 97.9 F 73 18 130/77 92 L Room Air 03/02/25 12:00 03/02/25 12:00 03/02/25 12:00 03/02/25 12:00 03/02/25 12:00 03/02/25 12:00 Narrative Exam General: Awake, alert, NAD HEENT: MMM, NG tube removed, no signs of infection or trauma Cardiac: RRR, no murmurs Lungs: Clear bilaterally, non-labored respirations Abdomen: Soft, nondistended, normoactive bowel sounds, no rebound or guarding Extremities: No edema, pulses palpable Neuro: AOx4, no focal deficits Skin: Warm, dry, intact Objective Labs 03/02/25 05:25 03/02/25 05:25 Labs: Laboratory Results - last 24 hr 03/02/25 05:25 WBC 4.7 D RBC 3.25 L Hgb 9.4 L Hct 29.0 L MCV 89 MCH 28.9 MCHC 32.4 RDW Std Deviation 46.7 H Plt Count 215 D Neut % (Auto) 67 Lymph % (Auto) 25 [place] % (Auto) 6 Eos % (Auto) 1 Baso % (Auto) 0 Neut # (Auto) 3.1 Lymph # (Auto) 1.2 [place] # (Auto) 0.3 Eos # (Auto) 0.1 Baso # (Auto) 0.0 Immature Gran # (Auto) 0.01 H Absolute Nucleated RBC 0.00 Immature Gran % 0 Nucleated RBC % 0 Sodium 145 Potassium 3.6 Chloride 115 H Carbon Dioxide 21.5 Anion Gap 9 BUN 11 Creatinine 1.0 Estim Creat Clear Calc 44.0 L eGFR > 60 BUN/Creatinine Ratio 11 L Glucose 100 Calculated Osmolality 288 Calcium 9.1 Corrected Calcium 9.3 Phosphorus 3.2 Magnesium 1.5 L Total Bilirubin 0.4 AST 13 ALT 11 Alkaline Phosphatase 73 Total Protein 5.6 L Albumin 3.7 Globulin 1.9 L Albumin/Globulin Ratio 1.9 ABG Interpretation ABG results: 02/28/25 01:51 VBG pH 7.46 VBG pCO2 30 L VBG pO2 54 VBG Base Excess -2 Quality Measures Quality Measures VTE prophylaxis Assessment & Plan Assessment Current Active Medications: Generic Name Dose Route Start Last Admin Trade Name Freq PRN Reason Stop Dose Admin Acetaminophen 650 mg 02/28/25 05:21 Acetaminophen 325 Mg Tablet PO 03/30/25 05:20 Q6H PRN Fever >100.4 or pain 1-3 Ondansetron HCl 4 mg 02/28/25 05:21 Ondansetron Inj 2 Mg/Ml Inj 2 Ml IVP 03/30/25 05:20 Q6H PRN NAUSEA OR VOMITING Protocol Pantoprazole Sodium 40 mg 03/02/25 09:00 03/02/25 09:06 Pantoprazole 40 Mg Tablet PO 04/01/25 08:59 40 mg QDAY MOI Administration Plan 64-year-old female with history of colorectal cancer s/p right colectomy and HIPEC, admitted for SBO secondary to adhesions, now clinically improved with resolution of obstruction, tolerating regular diet, and awaiting repeat blood culture results after preliminary growth of gram-positive cocci. ID consulted, discontinued doxycycline, and initiated metronidazole and TMP/SMX. # GPS bacteremia Blood cultures positive for gram-positive cocci from both anaerobic and aerobic cultures. Patient remains afebrile and hemodynamically stable. ID consulted. Plan: * Continue metronidazole and TMP/SMX per ID (03/02- ) * Repeat blood cultures pending * Monitor for fever, chills, tachycardia, or hypotension * Await final culture speciation and sensitivities * Continue inpatient monitoring until repeat cultures confirm clearance # Small Bowel Obstruction (Resolved) Likely secondary to adhesions from prior abdominal surgeries. Patient has had multiple bowel movements and is tolerating regular diet without nausea or pain. Plan: * SBO resolved, cleared by surgery * Continue regular diet * Encourage ambulation and oral hydration * Monitor for any recurrence of pain or distention # Hypernatremia (resolved) na 145 No clinical symptoms of hypernatremia. Plan: * Continue IV fluids with appropriate monitoring of sodium levels * Encourage PO hydration once regular diet tolerated # Lactic Acidosis (Resolved) Lactic acid 1.3, no signs of worsening metabolic acidosis. Plan: * No further monitoring required unless clinical change * Continue supportive care # Chronic Anemia Hgb stable at 9.4, consistent with patient?s chronic anemia. Plan: * Monitor CBC for any further decline * Transfusion not indicated at this time Health Maintenance: Code Status: Full Diet: Regular diet once tolerated DVT Prophylaxis: SCDs Lines/Tubes: PIV Disposition: Continue inpatient management with monitoring for infection and SBO resolution. ----- Plan discussed with attending physician Dr. Meyers and senior resident Dr. Romina Rice MD PGY-1 Internal Medicine
[2025-03-02 16:00] VITALS: BP 122/73; PULSE 68; RESP 18; TEMP 37.1; O2SAT 98
--- NOTE | 2025-03-02 16:04 | ESCONSULT_ITS ---
RE: SHANNON ALMANZAR : 1960 DATE OF CONSULTATION: 03/02/2025 REFERRING PHYSICIAN: Silva Puga MD REASON FOR CONSULTATION: Bacteremia. HISTORY OF PRESENT ILLNESS: The patient is admitted with abdominal pain. A partial small bowel obstruction was determined to be present. Blood cultures may be contaminated. There is no central line present. She seems to be responding with our treatment targeting the GPCs such as Staph aureus. That is very sensitive. PAST MEDICAL HISTORY: Her only medical problem is prior history of colon cancer years ago. PAST SURGICAL HISTORY: Include colon surgery years ago with reanastomosis. ALLERGIES: NONE NOTED. IMMUNIZATIONS: Last tetanus is unknown. She does take flu shot every year. She has had 3 COVID vaccines and has had two pneumococcal vaccines as well. FAMILY HISTORY: Unremarkable. SOCIAL HISTORY: She lives with her daughter. No smokers in the home and she works in the cafeteria here doing various tasks. PHYSICAL EXAMINATION: On exam, the patient has a benign abdomen. She seems to be doing rather well. Blood cultures are yet to be identified, but may be contaminated. They are listed as being drawn 5 minutes apart, but I think they are still maybe contaminated. If the repeats are negative and she seems to be doing rather well and if the blood cultures are positive for coagulase-negative staph, I probably not target that organism. Instead, continue with the treatment for her small bowel obstruction through Friday morning. I will check on her Friday if she remains, but if she goes home, I have no objections. DT: 15:07:39 TT: 16:04:00 Ref: [id number] - TID: [id number]
[2025-03-02 20:00] VITALS: BP 127/73; PULSE 73; RESP 18; TEMP 36.6; O2SAT 97
[2025-03-02] MEDS: TRIMETHOPRIM/SULFA 160/800 DS TABLET 1 TAB PO (21:00)
[2025-03-03] VITALS: BP 104/56; PULSE 65; RESP 17; TEMP 36.4; O2SAT 97
[2025-03-03 04:00] VITALS: BP 104/61; PULSE 69; RESP 18; TEMP 36.2; O2SAT 96
[2025-03-03 06:33] LABS: Basophils # (Auto) 0.0 Thou/mm3 (0.0-0.2); Basophils % (Auto) 0 % (0-2.5); Eosinophils # (Auto) 0.1 Thou/mm3 (0.0-0.5); Eosinophils % (Auto) 1 % (0-10); Hematocrit 29.0 % (36.0-46.0); Hemoglobin 9.6 g/dL (12.0-16.0); Immature Granulocytes Auto 0.01 Thou/mm3 (0.00-0.00); Lymphocytes # (Auto) 1.1 Thou/mm3 (1.0-4.8); Lymphocytes % (Auto) 25 % (10-50); Mean Corpuscular HGB Conc 33.1 g/dl (31.0-37.0); Mean Corpuscular Hemoglobin 28.9 pg (25.0-35.0); Mean Corpuscular Volume 87 fL (80-100); Monocytes # (Auto) 0.3 Thou/mm3 (0.0-0.8); Monocytes % (Auto) 6 % (0-12); Neutrophils # (Auto) 3.1 Thou/mm3 (1.8-7.7); Neutrophils % (Auto) 68 % (37-80); Nucleated Red Blood Cell # 0.00 Thou/mm3 (0.00-0.00); Nucleated Red Blood Cell % 0 /100 WBC (0); Platelet Count 204 Thou/mm3 (140-440); RDW Standard Deviation 45.0 fL (36.4-46.3); Red Blood Count 3.32 Miln/mm3 (4.00-5.20); White Blood Count 4.5 Thou/mm3 (3.6-11.0)
[2025-03-03 07:13] LABS: Alanine Aminotransferase 8 U/L (10-49); Albumin, Serum 3.8 gm/dL (3.4-4.8); Albumin/Globulin Ratio 1.8 (1.2-2.2); Alkaline Phosphatase 73 U/L (46-116); Anion Gap 12 (7-16); Aspartate Amino Transferase 11 U/L (0-34); BUN/Creatinine Ratio 13 Ratio (12-20); Bilirubin,Total 0.3 mg/dL (0.3-1.2); Blood Urea Nitrogen 15 mg/dL (9-23); Calcium 9.2 mg/dL (8.3-10.6); Calcium (Corrected) 9.4 mg/dL (8.5-10.1); Carbon Dioxide 20.6 mMol/L (20.0-31.0); Chloride 112 mMol/L (98-107); Creatinine (Component) 1.2 mg/dL (0.6-1.3); Estimated Creatinine Clearance 36.7 mL/min (>60); Globulin 2.1 gm/dL (2.3-3.5); Glucose 96 mg/dL (74-106); Magnesium 1.5 mg/dL (1.6-2.6); Osmolality,Calculated 289 (275-295); Phosphorous 4.0 mg/dL (2.4-5.1); Potassium 3.5 mMol/L (3.4-5.1); Sodium 145 mMol/L (136-145); Total Protein 5.9 gm/dL (5.7-8.2); eGFR 51 See Note
[2025-03-03 08:00] VITALS: BP 144/80; PULSE 69; RESP 18; TEMP 36.3; O2SAT 99
[2025-03-03] MEDS: PANTOPRAZOLE 40 MG TABLET PO (08:56)
[2025-03-03] MEDS: TRIMETHOPRIM/SULFA 160/800 DS TABLET 1 TAB PO (08:56)
--- NOTE | 2025-03-03 11:30 | ESDS_ITS ---
<Statement entered by All Meyers MD - 03/17/25 07:51> I reviewed above note and agree with findings and plans. I have also personally examined the patient with medicine team and went over assessment and plan with medical team including journalism intern and resident physician. <Statement entered by Elmer Warren MD - 03/05/25 16:05> I have personally seen and examined the patient, agree with residents assessment and plan Patient plan of care was discussed with the attending physician, Dr. Mira Warren, PGY2 Planned Discharge Date 03/03/25 DS: Providers Provider Date of admission: 02/28/25 05:20 Primary care physician: Steven Ceron MD Admitting Provider: Silva Puga MD Attending Provider on Admission: Silva Puga MD Consults: 02/28/25 04:39 Consult to General Surgery Stat Comment: SBO Consulting Provider: Aleks Gordon 03/02/25 11:20 Consult to Infectious Diseases Routine Comment: GPC bacteremia, immunocompromised status Consulting Provider: Shreyas Cotto Attending Provider on DC: All Meyers MD Discharging Provider: Romel Rice MD DS: Diagnosis Problem List Completed Was Problem List Reviewed/Reconciled?: Yes Hospital Course Hospital Course Hospital course: 64-year-old female with a history of colorectal cancer s/p right colectomy and HIPEC, currently in remission, who was admitted for acute small bowel obstruction likely secondary to adhesions from prior abdominal surgeries. She presented with abdominal pain, nausea, and vomiting. CT abdomen/pelvis revealed SBO without perforation or ischemia. She was managed conservatively with IV fluids, bowel rest, and antiemetics. NG tube was placed but not placed on suction. Symptoms improved with conservative therapy. She had multiple bowel movements and tolerated advancement from a clear liquid to a regular diet without difficulty. During hospitalization, blood cultures from 02/28 showed gram-positive cocci in both aerobic and anaerobic bottles. Repeat blood cultures drawn on 03/01 were negative after 24 hours, and the initial results were deemed contaminants. Infectious Disease was consulted; doxycycline was discontinued, and the patient was briefly treated with metronidazole and TMP/SMX, which were subsequently stopped when repeat cultures were confirmed negative. Electrolyte abnormalities (mild hypernatremia, hypokalemia) were corrected with oral and IV fluids. Lactic acid normalized (1.3), and the patient remained afebrile, hemodynamically stable, and without evidence of active infection. By discharge, the patient was pain-free, tolerating a regular diet, and cleared by both General Surgery and Infectious Disease for discharge home. Discharge Diagnoses: #Small Bowel Obstruction (resolved) #Bacteremia (initial culture positive, repeat negative; likely contaminant) #Mild hypernatremia/hypokalemia (resolved) #Chronic anemia (stable) #Subclinical hypothyroidism #History of colorectal cancer s/p right colectomy and HIPEC (in remission) Discharge Instructions: -Follow-up with PCP within 1 week of discharge. If you do not have appointment, please follow-up with the [facility] with Dr. Warren. Call [phone] to make an appointment. -Return to ED if symptoms persist or return ----- Plan discussed with attending physician Dr. Meyers and senior resident Dr. Briana Rice MD PGY-1 Internal Medicine Time Spent with Patient Time attestation: Total time spent providing and/or coordinating discharge services: Time spent: Greater than 30 minutes Exam Vital Signs Temp Pulse Resp BP Pulse Ox O2 Del Method 97.4 F 69 18 144/80 H 99 Room Air 03/03/25 08:00 03/03/25 08:00 03/03/25 08:00 03/03/25 08:00 03/03/25 08:00 03/03/25 08:00 Discharge Plan Plan Patient Disposition: HOME (Self Care) Patient condition on transfer: Stable Care Plan Goals: -Follow-up with PCP within 1 week of discharge. If you do not have appointment, please follow-up with the [facility] with Dr. Warren. Call [phone] to make an appointment. -Return to ED if symptoms persist or return Prescriptions/Referrals Prescriptions/Med Rec: No Action No Known Home Medications Referrals: Osmany (PCP)Steven MD [Primary Care Provider, Family Practice] Patient/Caregiver Discharge Instructions Education Materials: Small Bowel Obstruction, Obstruction Intestinal Print Language: Singaporean Stand Alone Forms: Janette Award Info., Patient Portal Info Letter Discharge Order Discharge Orders: Discharge (Routine); Ordered 03/03/25 Ordered By: Elmer Warren Quality Discharge Quality Measures VTE prophylaxis
[2025-03-03 12:00] VITALS: BP 106/68; PULSE 90; RESP 18; TEMP 36.4; O2SAT 98
== END 2025-03-03 12:50 | disposition home or self-care (01) | DRG 389 ==
LOC: SERX 04:40 → SERHOLD 05:31 → S3SX 07:59
PROVIDERS: Admitting Provider Student in an Organized Health Care Education/Training Program; Emergency Provider Emergency Medicine; PCP Family Medicine; Visit Provider Internal Medicine
DX: K56.51 Intestinal adhesions [bands], with partial obstruction (principal); E87.0 Hyperosmolality and hypernatremia; E87.20 Acidosis, unspecified; D64.9 Anemia, unspecified; E03.8 Other specified hypothyroidism; E87.6 Hypokalemia; Z85.048 Personal history of other malignant neoplasm of rectum, rectosigmoid junction, and anus; Z90.49 Acquired absence of other specified parts of digestive tract; Z86.73 Personal history of transient ischemic attack (TIA), and cerebral infarction without residual deficits
CPT/HCPCS: 36415; 71260; 74177; 74250; 76705; 80053; 81001; 82010; 82150; 82248; 82803; 83605; 83690; 83735; 83880; 84100; 84145; 84439; 84443; 84481; 84484; 85025; 85652; 86140; 87040; 87077; 87081; 87186; 87502; 87811; 96361; 96374; 96375; 99284; A4649; J0696; J1171; J1885; J2405; J2470; J7030; Q9963; Q9967; A9270